=== PATIENT | female | born 1955 | race Caucasian/White ===

== ENCOUNTER → 2019-03-06 | Outpatient (CLI) | payer MEDICARE, SELFPAY | PROVIDERS: Family Provider Nurse Practitioner Family; Visit Provider Internal Medicine | DX: R13.19 Other dysphagia (principal); K22.8 Other specified diseases of esophagus | CPT/HCPCS: 74230; 92611 ==

== ENCOUNTER 2019-03-16 09:13 | Day surgery (SDC) | payer MEDICARE, SELFPAY ==
[2019-03-15 07:58] VITALS: BMI 29.6
--- NOTE | 2019-03-16 08:49 | PM.HPUD ---
H&P update H&P Update: DATE OF SURGERY/PROCEDURE: 03/16/19 DATE H&P PERFORMED: 01/18/19 PLANNED PROCEDURE: Operation Date: 03/16/19 10:00 Proposed Procedures p EGD(Not Applicable) - Ishan Lance MD Full H&P HPI: PRIMARY INDICATION/DIAGNOSIS FOR SURGICAL PROCEDURE: Esophageal dysphagia PLANNED PROCEDURE: EGD with botox HPI: Her swallogram shows esophageal spasm. ROS: ROS: Dysphagia. Dysphonia. Perinent History: Medical/Surgical History: Medical History (Updated 03/15/19 @ 13:29 by Ishan Lance MD) Esophageal dysphagia (Acute) Family History: Family History (Updated 03/01/19 @ 14:18 by Cristina Sorensen RN) Brother Diabetes Hypertension Heart disease Mother Diabetes Hypertension Heart disease Father Stroke Social History: Social History Smoking and tobacco status: never smoked Second hand smoke exposure: Yes Alcohol intake: never Desire information about alcohol rehabilitation?: No Counseling given: No Pertinent Exam Findings: PHYSICAL EXAM: alert, oriented x 3, clear to auscultation bilaterally and regular rate & rhythm
[2019-03-16 09:51] VITALS: BP 132/69; PULSE 50; RESP 18; O2SAT 98
[2019-03-16] MEDS: sodium chloride 0.9% 1,000 ML 30 ML (09:59)
--- NOTE | 2019-03-16 10:10 | ANES.PREANES ---
Pre-Anesthetic Assessment Pre-Anesthetic Assessment: Height/Weight: Height 1.57 m Weight 73.482 kg Pulse Resp BP Pulse Ox 50 L 18 132/69 98 03/16/19 09:51 03/16/19 09:51 03/16/19 09:51 03/16/19 09:51 Proposed Procedure: Operation Date: 03/16/19 10:00 Proposed Procedures p EGD(Not Applicable) - Ishan Lance MD Was Beta Balta taken within 24 hours: Yes Last intake: Intake Last Liquid Date 03/15/19 Last Liquid Time 21:00 Last Solid Date 03/15/19 Last Solid Time 17:00 Last Intake: 07:44 Social: Social History: No alcohol and No tobacco Comment: 2nd hand Exam: Pre-Anes Outpt Exam: alert, oriented x 3, clear to auscultation bilaterally and regular rate & rhythm Airway: Submandibular: WNL Cervical ROM: WNL MP: 1 Additional comments: no teeth History/ROS: No significant complaints Pulmonary: Pulmonary: SOB CV/HEM: CV/HEM: Anemia, CAD, HTN and PA (february 2014) Comments: sinus bandar, leaky valves : : Chronic renal Insufficiency Comments: stage 3 kidney failure Hepatic: Hepatic: None reported GI: GI: GERD (controlled) Metabolic: Metabolic: Hyperlipidemia Musc/skel: Musc/skel: Lower Back Pain Neuropsych: Neuropsych: None reported Anesthetic Plan: ASA status: III Anesthesia: MAC Risk of > 500 ml blood loss (7ml/kg in children): No PFSH Anesthesia PFSH: Medical History (Updated 03/15/19 @ 13:29 by Ishan Lance MD) Esophageal dysphagia (Acute) Social History Smoking and tobacco status: never smoked Second hand smoke exposure: Yes Alcohol intake: never Desire information about alcohol rehabilitation?: No Counseling given: No Data Anesthesia Cardiac Studies: No Data to Display
[2019-03-16 10:45] VITALS: BP 123/72; PULSE 63; RESP 16; TEMP 36.6; O2SAT 98
--- NOTE | 2019-03-16 10:50 | ANE.PACU ---
 Inpatient post-anesthesia follow up: Airway intact: Yes Vital signs: Temperature 97.8 F Pulse Rate [Apical ] 63 Pulse Rate [Left A pical] 63 Respiratory Rate 16 Blood Pressure [Le ft Arm] 123/72 Pulse Oximetry 98 Oxygen Delivery Me thod Room Air Oxygen Flow Rate Fraction of Inspir ed Oxygen Hydration adequate: Yes Nausea and vomiting: No Pain level: 1 Mental status: Baseline
[2019-03-16 10:56] VITALS: BP 119/61; PULSE 65; RESP 18; O2SAT 94
== END 2019-03-16 11:15 | disposition home or self-care (01) ==
PROVIDERS: Family Provider Nurse Practitioner Family; PCP Nurse Practitioner Family; Visit Provider Internal Medicine
PROC: 3E0G8TZ Introduction of Destructive Agent into Upper GI, Via Natural or Artificial Opening Endoscopic (ICD-10-PCS; CPT 43236; 2019-03-16 10:00)
DX: R13.10 Dysphagia, unspecified (principal); K22.4 Dyskinesia of esophagus; R49.0 Dysphonia; I25.10 Atherosclerotic heart disease of native coronary artery without angina pectoris; I10 Essential (primary) hypertension; I25.2 Old myocardial infarction; K21.9 Gastro-esophageal reflux disease without esophagitis; E78.5 Hyperlipidemia, unspecified; Z82.49 Family history of ischemic heart disease and other diseases of the circulatory system; Z83.3 Family history of diabetes mellitus
CPT/HCPCS: 43236; J0585; J2704; J7030

== ENCOUNTER → 2019-03-22 09:09 | Outpatient (BNVA) | payer MEDICARE, SELFPAY | PROVIDERS: Family Provider Nurse Practitioner Family; PCP Nurse Practitioner Family; Visit Provider Obstetrics & Gynecology | DX: R82.90 Unspecified abnormal findings in urine (principal) | CPT/HCPCS: 81003; 87086 ==

== ENCOUNTER 2019-05-09 07:04 | Outpatient (CLI) | payer MEDICARE, SELFPAY ==
[2019-05-09 07:17] VITALS: BMI 31.4
--- NOTE | 2019-05-09 07:32 | ECG_ITS ---
NAME OF STUDY: LEXISCAN SESTAMIBI STRESS TEST INDICATION: Athrosclerotic Heart Disease PROCEDURE: At the baseline, the EKG revealed normal sinus rhythm with a poor R wave progression. Nonspecific T wave changes. Minimal left axis deviation. The baseline blood pressure was 111/76 mm Hg with a heart rate of 59 beats/min. Lexiscan was infused over a period of 20 seconds. A total of 0.4 milligrams of Lexiscan was infused. The stress phase was continued for a total of 5 minutes. Heart rate at the end of the stress phase was 94 with a blood pressure 135/83. The EKG at the peak infusion revealed no significant changes. Sestamibi was injected 20 seconds after the Lexiscan infusion. Blood pressure at the end of the recovery phase was 130/83 with a heart rate of 84 per minute. CONCLUSION: 1. No significant EKG changes with the LexiScan infusion 2. No LexiScan induced chest pain or cardiac arrhythmia 3. Normal blood pressure and heart rate response 4. Sestamibi/sestamibi perfusion scan pending; see separate report. Electronically Signed On 05-11-2019 15:56:56 ZIGZAG TUNNEL ELASTIC OPERATOR by Hemalatha King M.D. [email or web address]
--- NOTE | 2019-05-09 07:33 | NMCV_ITS ---
NM efrain perf SPECT r/s* [id number] Vivian Shaw Age: 64 Gender: F : 1955 Exam Date: 05/09/2019 08:24 Ordering Phys: Hemalatha King MD ([email or web address]) Technologist: CHARBEL Kessler Exam Location: [facility] Indications: ATHEROSCLEROTIC HEART DISEASE STRESS TEST Please see separate stress test report in [facility] for full findings IMAGE PROTOCOL Rest/Stress 1 Lexiscan Day Radiopharmaceutical Dose (mCi) Administration Site Administered by Rest: Tc-99m 10.9 IV CHARBEL Kessler Sestamibi Stress:Tc-99m 31.9 IV CHARBEL Dove Sestamibi Rest: 09-May-2019 60 Discovery 630 Stress: 09-May-2019 30 Discovery 630 0.4mg Lexiscan. Supine position only as patient was unable to lay prone. SPECT RESULTS Technical Quality: Good Raw Data Analysis: Normal Image Corrections: No attenuation or motion correction applied Summed Stress Score: 23 Summed Rest Score: 15 Summed Difference Score: 8 PERFUSION FINDINGS Moderate area of severely decreases uptake in the mid anterior, anterolateral , inferolateral and apical segments including the LV apex . Some reversibility was noted in the apical segments and the mid anterior, anterolateral and inferolateral segments FUNCTIONAL RESULTS (calculated via Gated SPECT) Stress Image LV EF (%): 52 Stress EDV (mL):111 TID: 1.26 Stress ESV (mL):53 FUNCTIONAL FINDINGS: LV wall motion analysis revealed a severe diffuse hypokinesia of the LV apex IMPRESSIONS 1. Myocardial perfusion imaging revealing a areas of severely decreased uptake in the anterior, anterolateral, inferolateral and apical segments with some reversibility, suggestive of myocardial scarring with ischemia in the distribution of the all the 3 coronary arteries. 2. Normal LV ejection fraction 52%. 3. LV wall motion analysis revealing severe diffuse hypokinesia of the LV apex. 4. Mildly dilated LV cavity with an end-systolic volume of 53 mL. 5. Elevated transient ischemic dilatation ratio(1.26) also may suggest endocardial ischemia. Clinical correlation recommended. No similar previous studies are available for comparison Dr Hemalatha King MD FAC (Electronically Signed) Final Date: 09 May 2019 20:48 S
--- NOTE | 2019-05-09 09:09 | SUR.PREOP ---
Patient reports no pain or discomfort prior to the start of the procedure.
[2019-05-09] MEDS: regadenoson 0.4 Mg/5 ml Syringe IVP (09:10)
[2019-05-09 09:23] VITALS: BP 127/82; PULSE 93
== END 2019-05-09 07:05 | disposition home or self-care (01) ==
LOC: CDL 07:07
PROVIDERS: Family Provider Nurse Practitioner Family; PCP Nurse Practitioner Family; Visit Provider Internal Medicine Cardiovascular Disease
DX: I25.10 Atherosclerotic heart disease of native coronary artery without angina pectoris (principal)
CPT/HCPCS: 78452; 93017; A9500; J2785

== ENCOUNTER 2019-05-25 09:08 | Observation (INO) | payer MEDICARE, SELFPAY ==
[2019-05-23 10:58] LABS: Basophils % 0.7 %; Eosinophils # 0.2 10^3/uL (0.0-0.8); Eosinophils % 3.9 %; Hematocrit 34.8 % (37.0-47.0); Hemoglobin 11.2 g/dL (11.5-15.3); Lymphocytes % 36.5 %; Mean Corpuscular HGB Conc 32.2 g/dL (30.0-36.0); Mean Corpuscular Hemoglobin 32.3 pg (28.0-34.0); Mean Corpuscular Volume 100.3 fL (81-99); Mean Platelet Volume 11.7 fL (7.4-10.4); Monocytes # 0.6 10^3/uL (0.2-0.9); Monocytes % 11.1 %; Neutrophils # 2.6 10^3/uL (1.8-7.7); Neutrophils % 47.6 %; Nucleated Red Blood Cells % 0 %; Platelet Count 146 10^3/cmm (130-400); Red Blood Count 3.47 10^6/uL (4.1-5.3); White Blood Count 5.4 10^3/uL (4.0-10.0)
[2019-05-23 11:11] LABS: INR 1.03 (0.8-1.2)
[2019-05-25] VITALS (24 sets, daily range): BP systolic 102–155; BP diastolic 58–95; PULSE 49–71; RESP 14–25; TEMP 36.7; O2SAT 96–100; BMI 31.9
--- NOTE | 2019-05-25 06:00 | XACV_ITS ---
Ht: 155 cm Wt: 77 kg BSA: 1.85 m2 Gender: Female : 1955 Any Known Allergies: Other Exam Priority: Routine Procedure(s): Procedure Description: Diagnostic procedure Procedure Description: Right Heart Catheterization Procedure Description: Left ventriculography Procedure Description: O2 saturation Procedure Description: Coronary Angiography Diagnostic Cath Status: Elective Diagnostic Findings pLAD: Moderate 65% stenosis, ZACKERY: 3 flow. dLAD: Severe 95% stenosis, ZACKERY: 3 flow. dLAD: Severe 100% stenosis, ZACKERY: 0 flow. Coronary angiography shows right dominance. The left main is a medium caliber vessel with no significant stenotic lesion. Mild coronary calcification was noted. The left anterior descending artery is a medium caliber vessel which was found to have mild diffuse disease proximally. Just before the first septal manager commodities, there is a 60 to 70% segmental narrowing. After the second diagonal branch, the artery appears to be subtotally occluded. Moderate to severe diffuse disease was noted in the distal artery. After the third diagonal branch, the artery is completely occluded. The circumflex artery is a medium sized artery with has mild diffuse disease proximally with mild diffuse coronary ectasia. No significant stenotic lesions were noted in the obtuse marginal vessel. The right coronary artery is a codominant, medium caliber vessel with mild diffuse disease. No significant stenotic lesions were noted. PCI Status: Elective Conclusions This is a 64-year-old white female with history of coronary artery disease, status post myocardial infarction 2013, he is presenting with shortness of breath and fatigue. She had a myocardial perfusion imaging which revealed fixed defect in the distribution of the left anterior descending artery. Because of her ongoing worsening of the symptoms, for further evaluation of her coronary status as well as the hemodynamics, a cardiac catheterization was recommended. Patient underwent right and left heart catheterization with right and left coronary angiogram, LV angiogram and possible PCI was recommended. The findings are as follows. Moderate to severe diffuse disease in the proximal to mid LAD. Total occlusion of the distal LAD. Mild diffuse disease in the other vessels. Diminished LV ejection fraction of 40%. LVEDP of 20 mmHg. The right heart catheterization revealed RA pressure of 8, RV pressure of 31 and PA pressure of 32/13 with a mean of 19 mmHg. The cardiac output was 4.06 with an index of 2.3 by Woody's. Recommendations We may consider cardiac MRI for viability. Consider possible intervention, based on the viability findings. Diagnostic RX Recommendation: medical therapy and/or counseling LV EDP: 20 mmHg Ventriculography Ejection Fraction: 40.0 % Left Ventriculography Findings: The LV angiogram was performed in the GREGORY projection. The LV cavity appears to be upper limit of normal size. There is moderate diffuse hypokinesia anteroapical region with a severe hypokinesia of the apex. There is no filling defect. No significant mitral valve prolapse or mitral regurgitation. The LVEDP was 20 which went up to 24 following the LV angiogram. Pressures Phase:Rest AO : 115 mmHg / 62 mmHg ( 84 mmHg ) @ 2:54:00 AM 118 mmHg / 63 mmHg ( 87 mmHg ) @ 3:01:00 AM 118 mmHg / 57 mmHg ( 84 mmHg ) @ 3:09:00 AM 119 mmHg / 59 mmHg ( 83 mmHg ) @ 3:09:00 AM LV : 136 mmHg / -9 mmHg / @ 3:07:00 AM 130 mmHg / -2 mmHg / @ 3:08:00 AM 129 mmHg / -3 mmHg / @ 3:09:00 AM RV : 31 mmHg / -2 mmHg / @ 2:50:00 AM 34 mmHg / 0 mmHg / @ 2:50:00 AM PA : 29 mmHg / 13 mmHg ( 19 mmHg ) @ 2:48:00 AM 32 mmHg / 13 mmHg ( 18 mmHg ) @ 2:49:00 AM RA : a wave = v wave = mean = 8 mmHg @ 2:51:00 AM O2 Content Phase:Rest PA : O2 Content O2: 72.0 % @ 2:54:00 AM Saturations Phase:Rest AO : 97 % @ 3:09:00 AM RA : 72 % @ 3:09:00 AM RV : 72 % @ 3:01:00 AM PA : 72 % @ 2:54:00 AM Cardiac Output Phase:Rest Woody : 4 l/min @ 2:54:00 AM Woody Cardiac Index: 2 L/min/m2 @ 2:54:00 AM Valves Phase:DefaultPhase AV : 13.0 mmHg @ 8:23:08 AM AV Mean Gradient: 12.0 mmHg @ 8:23:08 AM 12.0 mmHg @ 8:23:08 AM Clinical Evaluation EBL: 5mL-10mL Procedural Details Procedure Consent Obtained. Pre-Procedure Time Out. Identified patient by full name and date of as verbalized by the patient/guarantor. Does the consent match the physician's order: Yes. Accurate & Complete Informed Consent: Yes. Inpatient/Outpatient History & Physical on Chart: Yes. If H&P is completed, is and addenduem needed: No; If yes, is the addendum complete: N/A. Visualize and Verify Site with Patient/Guarantor: N/A. Relevant Radiology Images available: Yes. Pre-op teaching completed and patient verbalized understanding. The risks, benefits, and alternatives of sedation and/or procedure were discussed by physician. The patient agrees to continue. Procedure started. Correct patient, site and procedure confirmed by cath team. Current diagnosis: Chest Pain. PERRLA. Strong, equal hand senior benefits analyst bilaterally. Lungs clear x 5 lobes. IV Site on Arrival: 20 gauge in the left anticubital. IV Fluids: 0.9% NaCl at KVO. 0 mL infused prior to bundle tier and labeler. Pre Procedural Pulses: bilateral dorsalis pedis was 3+. Pre Procedural Pulses: bilateral posterior tibial was 3+. Pre Procedural Pulses: bilateral radial was 3+. bilateral groins was prepped with chloroprep then draped in the usual sterile fashion. Physician notified. Baseline sample Acquired. HR: 56 BPM. Equipment: 6F - Femoral. ACIST Manifold Kit Model BT 2000. Cardiac Cath Pack. Heparinized Saline (2 units/mL), 1000 mL bag. Kit, Micropuncture. Physician arrived. Physician scrubbed in. Immediate Pre-Procedure Time Out. Correct Patient: Yes; Correct Procedure: Yes; Correct Site: Yes; Correct Patient Position: Yes; Correct Supplies: Yes; Dried Flammable Prep: Yes; Blood Products Available: No;. Lidocaine 1% infiltrated to the right groin. Venous access obtained with a micropuncture set. Arterial access obtained with micropuncture set. Wayne-Nacho MON catheter inserted. Glidewire inserted. Glidewire removed. Wayne-Nacho out. A 6 sri lankan JR4 catheter in over wire. Multiple views taken of right coronary artery. Catheter out. A 6 sri lankan JL4 catheter in over wire. Multiple views taken of left coronary artery. Family updated. Catheter out. A 5 sri lankan Angled Pig catheter in over wire. EDP Sample taken: LV 136/-10,20; HR: 64 BPM; SpO2: 96%. LV gram performed in GREGORY @ 10 mL/second for a total of 30 mL. EDP Sample taken: LV 130/-3,24; HR: 61 BPM; SpO2: 97%. Pullback taken: LV 129/-4,20; AO 118/57(84); Mean: 12mmHg, Peak to Peak: 13mmHg, SEP: 23sec/min; HR: 62 BPM; SpO2: 95%. Catheter out. Dr. Micheal Valiente arrived. Dr. King scrubbed out and physicians reviewed films. Sheath(s) sutured into position with 2-0 silk and sterile 4x4's and Op-site applied over the site. No oozing or signs and symptoms of hematoma noted. Arterial sheath flushed and connected to tranducer and pressure bag with heparinized saline. A Suture was successful obtaining hemostatsis at the Right Femoral vein insertion site. A Suture was successful obtaining hemostatsis at the Right Femoral artery insertion site. Post Procedure: Pulses reassessed and unchanged. PERRLA. Strong, equal hand senior benefits analyst bilaterally. No VTE prophylaxis required. Medication's Wasted: Heparin = 2500 units. Medication's Wasted: Lidocaine 1% = 10 mL. Medication's Wasted: Other = Fentanyl 50mcg. Total IV fluids: 290 mL. Contrast type used: Omnipaque 300 mgI/mL, 500 mL bottle. Post-op diagnosis: Chest Pain. Complications: None. Estimated blood loss: 5mL-10mL. [facility] Clinical Fraility Score: 4: Vulnerable. Boilermaker Indications: Cardiomyopathy. Chest Pain Symptom Assessment: Non-anginal Chest Pain. Cardiovascular Instability: No. Procedure completed. Patient transferred by bed to 1st floor. Vital chart was stopped. Site: Right Femoral vein Sheath Size: 6 Fr Hemostasis Method: Suture Hemostasis Success: Successful Site: Right Femoral artery Sheath Size: 5 Fr Hemostasis Method: Suture Hemostasis Success: Successful Procedure Medications Start: 7:30 AM Stop: 7:30 AM Medication: Versed 1 mg and Fentanyl 25 mcg Amount: 1 Route: I.V. Start: 7:39 AM Stop: 7:39 AM Medication: Versed Amount: 1 mg Route: I.V. Start: 7:39 AM Stop: 7:39 AM Medication: Heparin Amount: 1500 units Route: I.V. Start: 7:54 AM Stop: 7:54 AM Medication: 0.9% Saline Amount: 250 ml Route: I.V. bolus Start: 7:57 AM Stop: 7:57 AM Medication: Versed 1 mg and Fentanyl 25 mcg Amount: 1 Route: I.V. Start: 8:07 AM Stop: 8:07 AM Medication: Versed Amount: 1 mg Route: I.V. I, the attending physician, have reviewed and verified all procedure medications. Yes, all medications given per verbal order History/Risk Factors Hypertension: Yes Dyslipidemia: Yes Peripheral Arterial Disease (PAD): No Myocardial Infarction (ND): Yes Obesity: No Renal Disease: Yes Tobacco Use: Never Prior Interventions PCI: No CABG: No Valve Surgery: No Report Signatures Finalized by:Dr Hemalatha King MD [facility] on 05/25/2019 9:50:33 AM
[2019-05-25 07:01] LABS: Anion Gap 16.4 (5-19); Blood Urea Nitrogen 16 mg/dL (8-23); Calcium 9.4 mg/dL (8.5-10.5); Carbon Dioxide 26 mmol/L (22-29); Chloride 106 mmol/L (98-107); Glomerular Filtration Rate 44.9 mL/min (90-130); Glucose 97 mg/dL (65-115); Osmolality Calculated 296 mOsm/kg (285-295); Potassium 3.4 mmol/L (3.5-5.1); Sodium 145 mmol/L (136-145)
[2019-05-25] MEDS: aspirin 81 mg EC Tablet PO (11:27)
[2019-05-25] MEDS: tamsulosin 0.4 mg Capsule PO (11:27)
[2019-05-25] MEDS: cholecalciferol (vitamin D3) 1,000 unit Tablet 1000 UNIT PO (11:27)
[2019-05-25] MEDS: oxybutynin 5 mg Tablet 10 MG PO (11:27)
[2019-05-25] MEDS: ascorbic acid 500 mg Tablet 1000 MG PO (11:27)
[2019-05-25] MEDS: carvedilol 3.125 mg Tablet PO ×2 (11:28→17:47)
[2019-05-25] MEDS: atorvastatin 40 mg Tablet PO (11:28)
[2019-05-25] MEDS: pantoprazole DR 40 mg Tablet PO (11:28)
[2019-05-25] MEDS: ferrous sulfate EC 325 mg Tablet PO ×2 (11:28→17:47)
[2019-05-25] MEDS: sodium chloride 0.9% 1,000 ML 75 ML IV (15:31)
--- NOTE | 2019-05-25 17:55 | PC.NURSE ---
pt states she took dose of Acetylcysteine prior to admission this morning.2nd dose for daay given now
[2019-05-25] MEDS: trazodone 100 mg Tablet PO (21:13)
[2019-05-25] MEDS: lisinopril 2.5 mg Tablet PO (21:13)
[2019-05-26] VITALS: BP 126/78; PULSE 75; RESP 21; TEMP 36.8; O2SAT 97
[2019-05-26 02:04] VITALS: PULSE 63; O2SAT 97
[2019-05-26 03:51] LABS: Anion Gap 9.2 (5-19); Blood Urea Nitrogen 17 mg/dL (8-23); Calcium 8.7 mg/dL (8.5-10.5); Carbon Dioxide 28 mmol/L (22-29); Chloride 109 mmol/L (98-107); Glomerular Filtration Rate 49.7 mL/min (90-130); Glucose 108 mg/dL (65-115); Osmolality Calculated 291 mOsm/kg (285-295); Potassium 4.2 mmol/L (3.5-5.1); Sodium 142 mmol/L (136-145)
[2019-05-26 04:14] VITALS: BP 125/71; PULSE 72; RESP 22; TEMP 36.7
[2019-05-26] MEDS: sodium chloride 0.9% 1,000 ML 75 ML IV (04:43)
[2019-05-26] MEDS: carvedilol 3.125 mg Tablet PO (08:57)
[2019-05-26] MEDS: pantoprazole DR 40 mg Tablet PO (08:57)
[2019-05-26] MEDS: ferrous sulfate EC 325 mg Tablet PO (08:57)
[2019-05-26] MEDS: tamsulosin 0.4 mg Capsule PO (08:58)
[2019-05-26] MEDS: ascorbic acid 500 mg Tablet 1000 MG PO (08:58)
[2019-05-26] MEDS: aspirin 81 mg EC Tablet PO (08:58)
[2019-05-26] MEDS: cholecalciferol (vitamin D3) 1,000 unit Tablet 1000 UNIT PO (08:58)
[2019-05-26] MEDS: oxybutynin 5 mg Tablet 10 MG PO (08:58)
[2019-05-26] MEDS: atorvastatin 40 mg Tablet PO (08:58)
[2019-05-26 09:04] VITALS: BP 155/77; PULSE 64; RESP 21; TEMP 36.4; O2SAT 99
--- NOTE | 2019-05-26 09:19 | P.PN_ITS ---
Subjective Subjective: Interval history: Patient is feeling okay. She has no chest pain or shortness of breath.Her vital signs remained stable.The blood pressure medications were adjusted. She was carefully hydrated. Her BUN and creatinine level is coming down. Medications: Reviewed: Yes Medication Review Details: Current Medications Acetaminophen (Tylenol) 650 mg PO Q6H PRN PRN Reason: MILD PAIN Al Hydrox/Mg Hydrox/Simethicone (Maalox) 30 ml PO Q15M PRN PRN Reason: INDIGESTION Alprazolam (Xanax) 0.25 mg PO TID PRN PRN Reason: ANXIETY Ascorbic Acid (Vitamin C) 1,000 mg PO DAILY [facility] Last Admin: 05/26/19 08:58 Dose: 1,000 mg Documented by: Aspirin (Aspirin Ec) 81 mg PO DAILY [facility] Last Admin: 05/26/19 08:58 Dose: 81 mg Documented by: Atorvastatin Calcium (Lipitor) 40 mg PO DAILY [facility] Last Admin: 05/26/19 08:58 Dose: 40 mg Documented by: Atropine Sulfate (Atropine) 0.5 mg IVP PRN PRN PRN Reason: Symptomatic bradycardia Carvedilol (Coreg) 3.125 mg PO BID [facility] Last Admin: 05/26/19 08:57 Dose: 3.125 mg Documented by: Fentanyl (Sublimaze) 50 mcg IVP PRN PRN PRN Reason: Prior to sheath removal Ferrous Sulfate (Ferrous Sulfate) 325 mg PO BID [facility] Last Admin: 05/26/19 08:57 Dose: 325 mg Documented by: Furosemide (Lasix) 20 mg PO DAILY PRN PRN Reason: Edema Sodium Chloride (Sodium Chloride 0.9%) 1,000 mls @ 75 mls/hr IV .[id number] [facility] Last Admin: 05/26/19 04:43 Dose: 75 mls/hr Documented by: Lisinopril (Prinivil) 2.5 mg PO BEDTIME [facility] Last Admin: 05/25/19 21:13 Dose: 2.5 mg Documented by: Magnesium Hydroxide (Milk Of Magnesia) 30 ml PO DAILY PRN PRN Reason: CONSTIPATION Morphine Sulfate (Morphine) 0 mg IVP ONCE PRN PRN Reason: Breakthrough Pain PACU PhaseII Stop: 05/26/19 12:01 Mupirocin (Bactroban) 1 applic TOPICAL TID [facility] Last Admin: 05/26/19 08:59 Dose: Not Given Documented by: Naloxone HCl (Narcan) 0.1 mg IVP Q2M PRN PRN Reason: RESPIRATORY RATE < 8/MIN Nitroglycerin (Nitrostat) 0.4 mg SUBLINGUAL Q5M PRN PRN Reason: Chest Pain Non-Formulary Medication (Acetylcysteine [Nac]) 600 mg PO BID [facility] Last Admin: 05/26/19 08:57 Dose: 600 mg Documented by: Non-Formulary Medication (Betamethasone, Augmented) 1 applic TOPICAL BID [facility] Last Admin: 05/26/19 08:58 Dose: Not Given Documented by: Non-Formulary Medication (Clobetasol) 1 applic TOPICAL DAILY [facility] Last Admin: 05/26/19 08:58 Dose: Not Given Documented by: Non-Formulary Medication(Estrogens Conjugated Cream 30 Gm) 1 each VAGINAL DIRECTED [facility] Non-Formulary Medication ( Cyanocobalamin) 500 each IM .WEEKLY [facility] Non-Formulary Medication (Fluticasone Propionate) 1 inh INHALATION DAILY PRN PRN Reason: Allergic Symptoms Non-Formulary Medication (Isosorbide Mononitrate) 10 mg PO DAILY [facility] Last Admin: 05/26/19 08:58 Dose: Not Given Documented by: Non-Formulary Medication (Methenamine Hippurate) 1 gm PO BID [facility] Last Admin: 05/26/19 08:58 Dose: Not Given Documented by: Non-Formulary Medication (Wckraabtwugv-Oxrzwxcf-Jqwsue) 1 tab PO DAILY [facility] Last Admin: 05/26/19 08:59 Dose: Not Given Documented by: Ondansetron HCl (Zofran) 4 mg IVP Q15M PRN PRN Reason: Nausea/Vomiting PACU PHASE II Oxybutynin Chloride (Ditropan) 10 mg PO DAILY [facility] Last Admin: 05/26/19 08:58 Dose: 10 mg Documented by: Pantoprazole Sodium (Protonix) 40 mg PO DAILY [facility] Last Admin: 05/26/19 08:57 Dose: 40 mg Documented by: Tamsulosin HCl (Flomax) 0.4 mg PO DAILY [facility] Last Admin: 05/26/19 08:58 Dose: 0.4 mg Documented by: Temazepam (Restoril) 15 mg PO BEDTIME PRN PRN Reason: INSOMNIA Trazodone HCl (Desyrel) 100 mg PO BEDTIME [facility] Last Admin: 05/25/19 21:13 Dose: 100 mg Documented by: Vitamin D (Vitamin D3) 1,000 unit PO DAILY YOLANDA Last Admin: 05/26/19 08:58 Dose: 1,000 unit Documented by: Vitals/I&O/Wt Last Vital Signs Temp 97.6 F 05/26/19 09:04 Pulse 64 05/26/19 09:04 Resp 21 H 05/26/19 09:04 BP 155/77 05/26/19 09:04 Pulse Ox 99 05/26/19 09:04 05/25/19 05/26/19 05/26/19 22:59 06:59 14:59 Intake Total 360 / 720 1110 / 1830 360 / 360 Balance 360 / 718 1110 / 1828 360 / 360 Weight last 48 hrs Weight 169 lb Physical Exam Narrative: EXAM NARRATIVE: GENERAL: The patient is alert and oriented times three. Not in any acute distress. HEENT: No significant pallor, icterus or lymphadenopathy.Oral cavity: There are no mucous membrane lesions. NECK: Trachea appears to be central. No masses noted. No JVD or thyromegaly appreciated. RESPIRATORY: Chest is symmetrical. No intercostals muscle retraction or any accessory muscle activation. There is no chest wall tenderness. Breath sounds are heard bilaterally. No rales or rhonchi heard. No evidence of any consolidation. BREASTS: Deferred. HEART: The heart sounds are normal. No S3 or S4. No significant murmurs. No pericardial rub ABDOMEN: No vessel pulsations or distention. No tenderness. No organomegaly appreciated. Bowel sounds are normally heard. : Deferred. LYMPHATIC: No lymphadenopathy noted in the neck or groin. EXTREMITIES: No edema or cyanosis. No clubbing. Peripheral pulses are palpated in fairly good volume and amplitude MUSCULOSKELETAL: No acute joint deformities or swelling SKIN: There are no significant scars or skin rash noted. NEUROPSYCHIATRIC: The patient is alert and oriented x3. Appears to be in a good mood. No tremors or rigidity noted. Data : 05/23/19 10:50 05/26/19 03:18 Other Labs: Abnormal lab results 05/26/19 Range/Units 03:18 Chloride 109 H (98-107) mmol/L Creatinine 1.1 H (0.5-0.9) mg/dL GFR Calculation 49.7 L (90-130) mL/min Attestations Medical Necessity Statement*: Patient is being discharged home today Procedures Procedure Narrative Patient underwent left and right heart catheterization with left and right coronary angiogram and LV angiogram. The findings are as follows. Moderate to severe diffuse disease in the proximal to mid LAD. Totalocclusion of the distal LAD. Mild diffuse disease in the other vessels. Diminished LV ejection fraction of 40%. LVEDP of 20 mmHg. The right heart catheterization revealed RA pressure of 8, RV pressure of 31 and PA pressure of 32/13 with a mean of 19 mmHg. The cardiac output was 4.06with an index of 2.3 by Woody's. The plan was to do a viability study to look for any significant viable myocardium in the distribution of the left artery descending artery. Based on that, the need for revascularization will be decided. In the meanwhile, it was decided to optimize the medical treatment. Coding Level of Care Code Acute Document Management Consultant for Wilmar Nash
[2019-05-26 10:01] VITALS: BP 155/77; PULSE 64; RESP 21; TEMP 36.4; O2SAT 99
[2019-05-26] MEDS: lisinopril 5 mg Tablet PO (10:25)
== END 2019-05-26 11:24 | disposition home or self-care (01) ==
LOC: CSU 09:09
PROVIDERS: Admitting Provider Internal Medicine Cardiovascular Disease; Family Provider Nurse Practitioner Family; PCP Nurse Practitioner Family; Visit Provider Internal Medicine Cardiovascular Disease
DX: I25.118 Atherosclerotic heart disease of native coronary artery with other forms of angina pectoris (principal); R94.39 Abnormal result of other cardiovascular function study; Z79.01 Long term (current) use of anticoagulants; R53.83 Other fatigue; E78.5 Hyperlipidemia, unspecified; Z79.82 Long term (current) use of aspirin; G47.33 Obstructive sleep apnea (adult) (pediatric); I12.9 Hypertensive chronic kidney disease with stage 1 through stage 4 chronic kidney disease, or unspecified chronic kidney disease; N18.3 Chronic kidney disease, stage 3 (moderate); Z82.49 Family history of ischemic heart disease and other diseases of the circulatory system; Z83.3 Family history of diabetes mellitus; Z82.3 Family history of stroke; I25.2 Old myocardial infarction
CPT/HCPCS: 12345; 36415; 80048; 85025; 85610; 86850; 86900; 93453; 96360; 96361; C1751; C1769; C1887; C1894; G0378; J1644; J2001; J2250; J3010; J7030; Q9967

== ENCOUNTER → 2019-05-31 15:42 | Outpatient (BNVA) | payer MEDICARE, SELFPAY | PROVIDERS: Family Provider Nurse Practitioner Family; PCP Nurse Practitioner Family; Visit Provider Internal Medicine Cardiovascular Disease | DX: R06.02 Shortness of breath (principal); G47.33 Obstructive sleep apnea (adult) (pediatric); I25.118 Atherosclerotic heart disease of native coronary artery with other forms of angina pectoris; E78.5 Hyperlipidemia, unspecified; I10 Essential (primary) hypertension; R53.83 Other fatigue | CPT/HCPCS: 80048 ==

== ENCOUNTER → 2019-07-24 11:35 | Outpatient (BNVA) | payer MEDICARE, SELFPAY | PROVIDERS: Family Provider Nurse Practitioner Family; PCP Nurse Practitioner Family; Visit Provider Internal Medicine Cardiovascular Disease | DX: R94.39 Abnormal result of other cardiovascular function study (principal); R06.02 Shortness of breath; Z79.01 Long term (current) use of anticoagulants; I25.118 Atherosclerotic heart disease of native coronary artery with other forms of angina pectoris; R40.0 Somnolence; E78.5 Hyperlipidemia, unspecified; I10 Essential (primary) hypertension | CPT/HCPCS: 80061; 80076 ==

== ENCOUNTER → 2019-08-14 10:50 | Outpatient (BNVA) | payer MEDICARE, SELFPAY | PROVIDERS: Family Provider Nurse Practitioner Family; PCP Nurse Practitioner Family; Visit Provider Family Medicine | DX: I10 Essential (primary) hypertension (principal); M54.9 Dorsalgia, unspecified; E78.5 Hyperlipidemia, unspecified; E55.9 Vitamin D deficiency, unspecified; J44.9 Chronic obstructive pulmonary disease, unspecified; J22 Unspecified acute lower respiratory infection; Z79.899 Other long term (current) drug therapy; E53.8 Deficiency of other specified B group vitamins | CPT/HCPCS: 71110; 80053; 80061; 81001; 81003; 82306; 83036; 84443; 85025 ==

== ENCOUNTER → 2019-08-16 14:08 | Outpatient (BNVA) | payer MEDICARE, SELFPAY | PROVIDERS: Family Provider Nurse Practitioner Family; PCP Nurse Practitioner Family; Visit Provider Nurse Practitioner Family | DX: R05 Cough (principal); J44.9 Chronic obstructive pulmonary disease, unspecified; E55.9 Vitamin D deficiency, unspecified | CPT/HCPCS: 71046; 82607 ==

== ENCOUNTER → 2019-08-20 09:58 | Outpatient (BNVA) | payer MEDICARE, SELFPAY | PROVIDERS: Family Provider Nurse Practitioner Family; PCP Nurse Practitioner Family; Visit Provider Nurse Practitioner Family | DX: E53.8 Deficiency of other specified B group vitamins (principal) | CPT/HCPCS: 82607 ==

== ENCOUNTER 2019-08-28 11:37 | Outpatient (CLI) | payer MEDICARE, SELFPAY ==
--- NOTE | 2019-08-28 11:48 | XRR_ITS ---
PROCEDURE INFORMATION: Exam: XR Thoracic Spine, 3 Views Exam date and time: 08/28/2019 11:49 AM Age: 64 years old Clinical indication: Condition or disease; Other: Compression fracture; Prior surgery TECHNIQUE: Imaging protocol: XR of the thoracic spine, 3 views. COMPARISON: No relevant prior studies available. FINDINGS: Vertebrae: There is mild osteoarthritis No acute fracture. Normal alignment. Soft tissues: Unremarkable. XR/XR thoracic spine 3V* [id number] IMPRESSION: No acute findings.
--- NOTE | 2019-08-28 11:48 | XRR_ITS ---
PROCEDURE INFORMATION: Exam: XR Lumbosacral Spine, 2 or 3 Views Exam date and time: 08/28/2019 11:49 AM Age: 64 years old Clinical indication: Condition or disease; Other: Compression fracture; Prior surgery TECHNIQUE: Imaging protocol: XR of the lumbosacral spine, 2 or 3 views. COMPARISON: No relevant prior studies available. FINDINGS: Vertebrae: Normal. No acute fracture. There is mild retrolisthesis L3-L4, and L2-L3. Narrowing of the intervertebral disc space is seen at multiple levels corresponding to osteoarthritis. There is mild levoscoliosis Soft tissues: Unremarkable. XR/XR lumbar spine 2-3V* [id number] IMPRESSION: No acute findings. Mild osteoarthritis Mild levoscoliosis
--- NOTE | 2019-08-28 11:48 | XRR_ITS ---
PROCEDURE INFORMATION: Exam: XR Chest, 2 Views Exam date and time: 08/28/2019 12:24 PM Age: 64 years old Clinical indication: Cough; Additional info: Chronic cough TECHNIQUE: Imaging protocol: XR of the chest Views: 2 views. COMPARISON: CR XR chest 2V* [id number] 08/14/2019 11:01 AM FINDINGS: Lungs: Unremarkable. No consolidation. Pleural space: Unremarkable. No pleural effusion. No pneumothorax. Heart/Mediastinum: Unremarkable. No cardiomegaly. Bones/joints: Unremarkable. XR/XR chest 2V* [id number] IMPRESSION: No acute findings.
== END 2019-08-28 11:38 | disposition home or self-care (01) ==
LOC: RAD 11:42
PROVIDERS: PCP Nurse Practitioner Family; Visit Provider Nurse Practitioner Family
DX: R05 Cough (principal); M48.50XA Collapsed vertebra, not elsewhere classified, site unspecified, initial encounter for fracture; M47.816 Spondylosis without myelopathy or radiculopathy, lumbar region; M41.9 Scoliosis, unspecified
CPT/HCPCS: 71046; 72072; 72100; 81001

== ENCOUNTER → 2019-09-06 12:02 | Outpatient (BNVA) | payer MEDICARE, SELFPAY | PROVIDERS: PCP Nurse Practitioner Family | DX: Z11.59 Encounter for screening for other viral diseases (principal) | CPT/HCPCS: 87635 ==

== ENCOUNTER 2019-09-26 20:00 | Outpatient (CLI) | payer MEDICARE, SELFPAY | END 2019-09-26 20:01 | disposition home or self-care (01) | LOC: SLEEP 09-27 09:27 | PROVIDERS: PCP Nurse Practitioner Family; Visit Provider Internal Medicine Cardiovascular Disease | DX: G47.10 Hypersomnia, unspecified (principal); G47.33 Obstructive sleep apnea (adult) (pediatric) | CPT/HCPCS: 95810 ==

== ENCOUNTER 2019-10-01 10:16 | Outpatient (CLI) | payer MEDICARE, SELFPAY ==
--- NOTE | 2019-10-01 10:30 | MM_ITS ---
WS: [id number] DIAGNOSTIC RIGHT DIGITAL MAMMOGRAM WITH CAD HISTORY: abnormal mammogram COMPARISON: 02/05/2019 and 12/05/2018 Technique: CC, MLO and ML views. Magnification views RIGHT CC and MLO. Breast composition: There are scattered areas of fibroglandular density. Calcifications in the upper outer quadrant of the RIGHT breast are not significantly changed. This is a very ill-defined cluster of calcifications and poorly visualized. There are adjacent vascular calcifications. No soft tissue mass. MM/[place] [id number] IMPRESSION: BI-RADS: 3-Probably Benign FOLLOW UP: 6 Month Follow-up Patient to return in 6 months for annual mammogram. Additional magnification vi ews of the RIGHT breast calcifications should be performed at that time.
== END 2019-10-01 10:17 | disposition home or self-care (01) ==
LOC: RADSHAW 10:21
PROVIDERS: PCP Nurse Practitioner Family; Visit Provider Nurse Practitioner Family
DX: R92.8 Other abnormal and inconclusive findings on diagnostic imaging of breast (principal); R92.1 Mammographic calcification found on diagnostic imaging of breast
CPT/HCPCS: 77065

== ENCOUNTER 2019-11-09 20:00 | Outpatient (CLI) | payer MEDICARE, SELFPAY | END 2019-11-09 20:01 | disposition home or self-care (01) | LOC: SLEEP 11-13 08:37 | PROVIDERS: PCP Nurse Practitioner Family; Visit Provider Internal Medicine Cardiovascular Disease | DX: G47.33 Obstructive sleep apnea (adult) (pediatric) (principal) | CPT/HCPCS: 95811 ==

== ENCOUNTER → 2019-11-29 12:21 | Outpatient (BNVA) | payer MEDICARE, SELFPAY | PROVIDERS: PCP Nurse Practitioner Family; Visit Provider Internal Medicine Cardiovascular Disease | DX: E78.5 Hyperlipidemia, unspecified (principal) | CPT/HCPCS: 80061; 80076 ==

== ENCOUNTER → 2020-01-02 12:15 | Outpatient (BNVA) | payer MEDICARE, SELFPAY | PROVIDERS: PCP Nurse Practitioner Family; Visit Provider Nurse Practitioner Family | DX: N39.0 Urinary tract infection, site not specified (principal) | CPT/HCPCS: 80053; 81003 ==

== ENCOUNTER → 2020-02-04 09:07 | Outpatient (BNVA) | payer MEDICARE, SELFPAY | PROVIDERS: PCP Nurse Practitioner Family; Visit Provider Nurse Practitioner Family | DX: E55.9 Vitamin D deficiency, unspecified (principal); E78.5 Hyperlipidemia, unspecified; D64.9 Anemia, unspecified; N39.0 Urinary tract infection, site not specified; M54.9 Dorsalgia, unspecified; I10 Essential (primary) hypertension; Z79.899 Other long term (current) drug therapy | CPT/HCPCS: 80053; 80061; 81003; 82306; 82607; 82746; 83036; 83550; 84443; 85025; 87086; 87635 ==

== ENCOUNTER → 2020-03-20 10:16 | Outpatient (BNVA) | payer MEDICARE, SELFPAY | PROVIDERS: PCP Nurse Practitioner Family; Visit Provider Nurse Practitioner Family | DX: H66.90 Otitis media, unspecified, unspecified ear (principal); D64.9 Anemia, unspecified; E55.9 Vitamin D deficiency, unspecified | CPT/HCPCS: 82306; 83540; 83921; 85025 ==

== ENCOUNTER 2020-08-12 15:02 | Outpatient (CLI) | payer MEDICARE, SELFPAY ==
--- NOTE | 2020-08-12 15:06 | MM_ITS ---
WS: [id number] BILATERAL SCREENING DIGITAL MAMMOGRAM WITH CAD HISTORY: SCREENING COMPARISON: 10/01/2019, 12/05/2018 Bilateral CC and MLO views submitted. Computer aided detection analyzed. Breast composition: The breasts are heterogeneously dense, which may obscure small masses. No suspici ous masses, microcalcifications or architectural distortion. Benign vascular calcifications. MM/[place] [id number] IMPRESSION: BI-RADS: 2-Benign FOLLOW UP: 1 Year Follow-up
== END 2020-08-12 15:03 | disposition home or self-care (01) ==
LOC: RADSHAW 15:05
PROVIDERS: PCP Nurse Practitioner Family; Visit Provider Nurse Practitioner Family
DX: Z12.31 Encounter for screening mammogram for malignant neoplasm of breast (principal)
CPT/HCPCS: 77067

== ENCOUNTER → 2020-08-20 12:19 | Outpatient (BNVA) | payer MEDICARE, SELFPAY | PROVIDERS: PCP Nurse Practitioner Family; Visit Provider Nurse Practitioner Family | DX: D64.9 Anemia, unspecified (principal); I10 Essential (primary) hypertension; E78.2 Mixed hyperlipidemia; E55.9 Vitamin D deficiency, unspecified; M51.36 Other intervertebral disc degeneration, lumbar region; J44.9 Chronic obstructive pulmonary disease, unspecified; I25.118 Atherosclerotic heart disease of native coronary artery with other forms of angina pectoris; Z79.899 Other long term (current) drug therapy | CPT/HCPCS: 80053; 80061; 82306; 82607; 82746; 83036; 83550; 83735; 84100; 85025 ==

== ENCOUNTER → 2020-08-27 14:01 | Outpatient (BNVA) | payer MEDICARE, SELFPAY | PROVIDERS: PCP Nurse Practitioner Family; Visit Provider Urology | DX: N39.46 Mixed incontinence (principal); J44.9 Chronic obstructive pulmonary disease, unspecified; J22 Unspecified acute lower respiratory infection; N39.0 Urinary tract infection, site not specified | CPT/HCPCS: 81003 ==

== ENCOUNTER 2021-02-13 07:56 | Outpatient (CLI) | payer MEDICARE, SELFPAY ==
--- NOTE | 2021-02-13 08:00 | USCV_ITS ---
Vivian Shaw Age: 65 Gender: F : 1955 Exam Date: 02/13/2021 08:26 Ordering Phys: Hemalatha King MD ([email or web address]) Technologist: Exam Location: [facility] – [place] Indication: MURMUR EF BP: 123 / 69 HR: 51 Rhythm: Sinus Technical Quality: Good MEASUREMENTS (Male / Female) Normal Values 2D ECHO LV Diastolic Diameter PLAX 4.5 cm 4.2 - 5.9 / 3.9 - 5.3 cm LV Systolic Diameter PLAX 2.9 cm IVS Diastolic Thickness 1.0 cm 0.6 - 1.0 / 0.6 - 0.9 cm IVS Systolic Thickness 1.5 cm LVPW Diastolic Thickness 1.1 cm 0.6 - 1.0 / 0.6 - 0.9 cm LVPW Systolic Thickness 1.4 cm LVOT Diameter 2.0 cm LV Ejection Fraction 2D Teich 64.2 % LV Ejection Fraction MOD 2C 58.5 % LV Ejection Fraction 2C AL 59.0 % LA Diameter 4.1 cm LA Width 3.6 cm LA Height 5.7 cm RA Width 3.9 cm RA Height 4.4 cm Aorta at Sinotubular Diameter 2.1 cm M-MODE Aortic Annulus Diameter 3.1 cm LA Ao Ratio MM 1.4 MV E Point Septal Separation 0.8 cm DOPPLER AV Peak Velocity 156.0 cm/s LVOT Peak Velocity 111.0 cm/s AV Area Cont Eq vti 2.0 cm squared AV Area Cont Eq pk 2.2 cm squared MV Area PHT 5.0 cm squared Mitral E to A Ratio 1.1 MV E' Velocity 71.0 cm/s TR Peak Velocity 261.3 cm/s TR Peak Gradient 27.3 mmHg TV Peak E Velocity 100.0 cm/s Right Atrial Pressure 3.0 mmHg Pulmonary Artery Systolic Pressu 30.3 mmHg PV Peak Velocity 70.0 cm/s FINDINGS Left Ventricle Normal left ventricular size and systolic function, EF 60 %. Moderate hypokinesia of the basal septal segment.Grade II/IV diastolic dysfunction, moderately elevated filling pressures. Right Ventricle The right ventricle is normal in size and function. Right Atrium Mildly increased right atrial size. Left Atrium Mildly increased left atrial size. Mitral Valve Moderate mitral valve regurgitation. Moderate mitral annular calcification. Aortic Valve Mild aortic valve regurgitation. Tricuspid Valve Moderate tricuspid valve regurgitation. . Estimated pulmonary artery peak systolic pressure 30 mmHg Pulmonic Valve No gross abnormalities noted. Pericardium Normal pericardium without effusion. Aorta Normal ascending aorta dimension. CONCLUSIONS Normal left ventricular size and systolic function, EF 60 %. Moderate hypokinesia of the basal septal segment. Grade II/IV diastolic dysfunction, moderately elevated filling pressures. Mild biatrial enlargement. Moderate mitral valve regurgitation. Moderate mitral annular calcification. Mild aortic valve regurgitation. Moderate tricuspid valve regurgitation. Estimated pulmonary artery peak systolic pressure 30 mmHg. There is no pericardial effusion. There are no intracardiac masses. No previous study is available for comparison. Dr Hemalatha King MD FAC (Electronically Signed) Final Date: 13 February 2021 16:06 S
== END 2021-02-13 07:57 | disposition home or self-care (01) ==
LOC: US 08:00
PROVIDERS: PCP Nurse Practitioner Family; Visit Provider Internal Medicine Cardiovascular Disease
DX: R06.00 Dyspnea, unspecified (principal); I25.5 Ischemic cardiomyopathy; I42.0 Dilated cardiomyopathy; I08.3 Combined rheumatic disorders of mitral, aortic and tricuspid valves
CPT/HCPCS: 93306

== ENCOUNTER → 2021-06-11 13:19 | Outpatient (BNVA) | payer MEDICARE, SELFPAY | PROVIDERS: PCP Nurse Practitioner Family; Visit Provider Internal Medicine Cardiovascular Disease | DX: I25.118 Atherosclerotic heart disease of native coronary artery with other forms of angina pectoris (principal); R40.0 Somnolence; E78.5 Hyperlipidemia, unspecified; E53.8 Deficiency of other specified B group vitamins; J38.3 Other diseases of vocal cords; N39.0 Urinary tract infection, site not specified; R94.39 Abnormal result of other cardiovascular function study; R06.02 Shortness of breath; Z79.01 Long term (current) use of anticoagulants | CPT/HCPCS: 80048; 83880; 85025; 99214 ==

== ENCOUNTER 2021-06-25 12:11 | Outpatient (CLI) | payer MEDICARE, SELFPAY ==
[2021-06-25 13:46] LABS: Anion Gap 14.4 (5-19); Blood Urea Nitrogen 39 mg/dL (8-23); Calcium 9.1 mg/dL (8.5-10.5); Carbon Dioxide 26 mmol/L (22-29); Chloride 105 mmol/L (98-107); Glomerular Filtration Rate 55.1 mL/min (90-130); Glucose 90 mg/dL (65-115); NT Pro B Type Natriuretic Pept 783 pg/mL (0-125); Osmolality Calculated 301 mOsm/kg (285-295); Potassium 4.4 mmol/L (3.5-5.1); Sodium 141 mmol/L (136-145)
== END 2021-06-25 12:12 | disposition home or self-care (01) ==
LOC: LAB 12:16
PROVIDERS: PCP Nurse Practitioner Family; Visit Provider Internal Medicine Cardiovascular Disease
DX: N18.2 Chronic kidney disease, stage 2 (mild) (principal); M79.89 Other specified soft tissue disorders; I42.0 Dilated cardiomyopathy; I25.5 Ischemic cardiomyopathy
CPT/HCPCS: 36415; 80048; 83880

== ENCOUNTER 2021-07-09 09:39 | Outpatient (CLI) | payer MEDICARE, SELFPAY ==
[2021-07-09 11:07] LABS: Anion Gap 14.5 (5-19); Blood Urea Nitrogen 29 mg/dL (8-23); Calcium 10.1 mg/dL (8.5-10.5); Carbon Dioxide 26 mmol/L (22-29); Chloride 105 mmol/L (98-107); Glomerular Filtration Rate 49.4 mL/min (90-130); Glucose 92 mg/dL (65-115); NT Pro B Type Natriuretic Pept 654 pg/mL (0-125); Osmolality Calculated 297 mOsm/kg (285-295); Potassium 4.5 mmol/L (3.5-5.1); Sodium 141 mmol/L (136-145)
[2021-07-09 17:36] LABS: Bilirubin Urine Neg (Negative); Blood Urine Neg (Negative); Glucose Urine UA Norm (Normal); Ketones Urine Negative (Negative); Nitrate Urine Negative (Negative); Protein Urine Neg (Negative); Urine Appearance Clear (CLEAR); Urine Color Yellow (Yellow); Urobilinogen Urine Norm (Negative); pH Urine 6 (5-7)
[2021-07-09 17:37] LABS: Leukocyte Esterase Urine Negative (Negative); RBC Urine 0-4 /hpf (0-2); WBC Urine 0-4 /hpf (0-5)
[2021-07-09 17:59] LABS: Bacteria Urine 1+ /hpf
== END 2021-07-09 09:40 | disposition home or self-care (01) ==
PROVIDERS: PCP Nurse Practitioner Family; Visit Provider Internal Medicine Cardiovascular Disease
DX: N18.2 Chronic kidney disease, stage 2 (mild) (principal); I25.5 Ischemic cardiomyopathy; I42.0 Dilated cardiomyopathy; N39.0 Urinary tract infection, site not specified; M79.89 Other specified soft tissue disorders; R06.02 Shortness of breath
CPT/HCPCS: 36415; 80048; 81001; 83880

== ENCOUNTER → 2021-08-25 12:34 | Outpatient (BNVA) | payer MEDICARE, SELFPAY | PROVIDERS: PCP Nurse Practitioner Family; Visit Provider Urology | DX: N39.41 Urge incontinence (principal); N39.0 Urinary tract infection, site not specified; R33.9 Retention of urine, unspecified | CPT/HCPCS: 51798; 81003; 99214 ==

== ENCOUNTER 2021-09-16 13:43 | Outpatient (CLI) | payer MEDICARE, SELFPAY ==
--- NOTE | 2021-09-16 13:56 | MM_ITS ---
WS: [id number] Bilateral screening 3D tomosynthesis digital mammogram, 09/16/2021 Clinical Data: SCREENING Comparison: 08/12/2020, 10/01/2019, 02/05/2019, 12/05/2018, 12/23/2015, 01/01/2011, 01/23/2009, 10/20/2007, 10/05/2006. Findings: The breast parenchymal pattern shows fibroglandular tissue. No spiculated masses or clustered calcifi cations are seen. There are no secondary signs of carcinoma. There are mole markers on the right [address]. MM/[place] [id number] Impression: 1. Negative bilateral mammogram unchanged. 2. Recommend annual screening mammograms. BIRADS: 1-Negative FOLLOW UP: 1 Year Follow-up The CAD instrument checker was used.
== END 2021-09-16 13:44 | disposition home or self-care (01) ==
LOC: RAD 13:44
PROVIDERS: PCP Family Medicine; Visit Provider Family Medicine
DX: Z12.31 Encounter for screening mammogram for malignant neoplasm of breast (principal)
CPT/HCPCS: 77063; 77067

== ENCOUNTER 2021-11-30 07:58 | Outpatient (CLI) | payer MEDICARE, SELFPAY ==
--- NOTE | 2021-11-30 09:03 | XR_ITS ---
WS: [id number] DEXA (DUAL ENERGY X-RAY ABSORPTIOMETRY) Bone mineral density was performed using a Quack machine. HISTORY: SCREENING FOR OSTEOPOROSIS COMPARISON: None available. Lumbar spine BMD (L1-L4): 1.292 g/cm2 T score: 0.9 Z score: 2.4 Total hip BMD: Left: 0.877 g/cm2. T score: -1.0 Z score: 0.2 Right: 0.800 g/cm2. T score: -1.6 Z score: -0.4 10 year probability of a major osteoporotic fracture is 9.7%. XR/XR DEXA axial skeleton* [id number] IMPRESSION: OSTEOPENIA based upon the WHO classification for females.
== END 2021-11-30 07:59 | disposition home or self-care (01) ==
LOC: RAD 08:03
PROVIDERS: PCP Family Medicine; Visit Provider Family Medicine
DX: Z13.820 Encounter for screening for osteoporosis (principal); M85.80 Other specified disorders of bone density and structure, unspecified site; I25.118 Atherosclerotic heart disease of native coronary artery with other forms of angina pectoris; I10 Essential (primary) hypertension
CPT/HCPCS: 36415; 77080; 80048; 99214

== ENCOUNTER → 2022-05-26 11:23 | Outpatient (BNVA) | payer MEDICARE, SELFPAY | PROVIDERS: PCP Family Medicine; Visit Provider Family Medicine | DX: N39.41 Urge incontinence (principal); I10 Essential (primary) hypertension; E78.5 Hyperlipidemia, unspecified; N18.9 Chronic kidney disease, unspecified | CPT/HCPCS: 80053; 80061; 81000; 83880; 85025 ==

== ENCOUNTER → 2022-06-01 13:43 | Outpatient (BNVA) | payer MEDICARE, SELFPAY | PROVIDERS: PCP Family Medicine; Visit Provider Internal Medicine Cardiovascular Disease | DX: I25.118 Atherosclerotic heart disease of native coronary artery with other forms of angina pectoris (principal); E78.5 Hyperlipidemia, unspecified; G47.33 Obstructive sleep apnea (adult) (pediatric); J44.9 Chronic obstructive pulmonary disease, unspecified; I12.9 Hypertensive chronic kidney disease with stage 1 through stage 4 chronic kidney disease, or unspecified chronic kidney disease; N18.30 Chronic kidney disease, stage 3 unspecified; Z79.82 Long term (current) use of aspirin | CPT/HCPCS: 99214 ==

== ENCOUNTER → 2022-08-12 15:21 | Outpatient (BNVA) | payer MEDICARE, SELFPAY | PROVIDERS: PCP Family Medicine; Referring Provider Nurse Practitioner; Visit Provider Physician Assistant | DX: S32.009A Unspecified fracture of unspecified lumbar vertebra, initial encounter for closed fracture (principal); X58.XXXA Exposure to other specified factors, initial encounter; M54.2 Cervicalgia | CPT/HCPCS: 72040; 99203 ==

== ENCOUNTER → 2022-08-26 10:48 | Outpatient (BNVA) | payer MEDICARE, SELFPAY | PROVIDERS: PCP Family Medicine; Visit Provider Urology | DX: R33.9 Retention of urine, unspecified (principal) | CPT/HCPCS: 51798; 81003; 99214 ==

== ENCOUNTER → 2022-09-09 08:41 | Outpatient (BNVA) | payer MEDICARE, SELFPAY | PROVIDERS: PCP Family Medicine; Visit Provider Physician Assistant | DX: S32.009A Unspecified fracture of unspecified lumbar vertebra, initial encounter for closed fracture (principal); X58.XXXA Exposure to other specified factors, initial encounter | CPT/HCPCS: 72100; 99213 ==

== ENCOUNTER 2022-09-22 15:03 | Outpatient (CLI) | payer MEDICARE, SELFPAY ==
--- NOTE | 2022-09-22 15:13 | MM_ITS ---
WS: [email or web address] BILATERAL 3D TOMOSYNTHESIS DIGITAL SCREENING MAMMOGRAPHY WITH CAD CLINICAL INFORMATION: SCREENING HISTORY: Screening mammogram. No current complaints. COMPARISON: 2021 TECHNIQUE: Bilateral CC and MLO views. FINDINGS: Scattered fibroglandular densities bilaterally. No suspicious focal mass, asymmetry, calcifications, or architectural distortion. No evidence of malignancy. Vascular calcification. Incidental punctate c alcifications. MM/[place] [id number] IMPRESSION: BI-RADS: 2-Benign FOLLOW UP: 1 Year Follow-up Recommend return to annual screening mammography.
== END 2022-09-22 15:04 | disposition home or self-care (01) ==
PROVIDERS: PCP Family Medicine; Visit Provider Family Medicine
DX: Z12.31 Encounter for screening mammogram for malignant neoplasm of breast (principal)
CPT/HCPCS: 77063; 77067

== ENCOUNTER → 2022-12-14 13:24 | Outpatient (BNVA) | payer MEDICARE, SELFPAY | PROVIDERS: PCP Family Medicine; Visit Provider Internal Medicine Cardiovascular Disease | DX: I25.118 Atherosclerotic heart disease of native coronary artery with other forms of angina pectoris (principal); I12.9 Hypertensive chronic kidney disease with stage 1 through stage 4 chronic kidney disease, or unspecified chronic kidney disease; N18.30 Chronic kidney disease, stage 3 unspecified; G47.33 Obstructive sleep apnea (adult) (pediatric); Z99.89 Dependence on other enabling machines and devices; E78.5 Hyperlipidemia, unspecified; R53.83 Other fatigue | CPT/HCPCS: 99214 ==

== ENCOUNTER → 2022-12-15 09:52 | Outpatient (BNVA) | payer MEDICARE, SELFPAY | PROVIDERS: PCP Family Medicine; Visit Provider Family Medicine | DX: S32.009A Unspecified fracture of unspecified lumbar vertebra, initial encounter for closed fracture (principal); I10 Essential (primary) hypertension; E55.9 Vitamin D deficiency, unspecified; X58.XXXA Exposure to other specified factors, initial encounter; Z79.899 Other long term (current) drug therapy | CPT/HCPCS: 80053; 80061; 82306; 83036; 85025 ==

== ENCOUNTER → 2023-04-26 15:35 | Outpatient (BNVA) | payer MEDICARE, SELFPAY | PROVIDERS: PCP Family Medicine; Visit Provider Nurse Practitioner Family | DX: I10 Essential (primary) hypertension (principal); R06.02 Shortness of breath | CPT/HCPCS: 71046; 80053; 85025; 93005 ==

== ENCOUNTER → 2023-05-30 15:35 | Outpatient (BNVA) | payer MEDICARE, SELFPAY | PROVIDERS: PCP Nurse Practitioner Family; Visit Provider Nurse Practitioner Family | DX: R05.9 Cough, unspecified (principal) | CPT/HCPCS: 87400; 87426 ==

== ENCOUNTER → 2023-07-07 14:35 | Outpatient (BNVA) | payer MEDICARE, SELFPAY | PROVIDERS: PCP Nurse Practitioner Family; Visit Provider Internal Medicine Cardiovascular Disease | DX: R07.9 Chest pain, unspecified (principal); I25.118 Atherosclerotic heart disease of native coronary artery with other forms of angina pectoris; E78.5 Hyperlipidemia, unspecified; I11.0 Hypertensive heart disease with heart failure; I50.9 Heart failure, unspecified; I45.2 Bifascicular block; R94.31 Abnormal electrocardiogram [ECG] [EKG] | CPT/HCPCS: 93005; 99214 ==

== ENCOUNTER → 2023-07-25 10:47 | Outpatient (BNVA) | payer MEDICARE, SELFPAY | PROVIDERS: PCP Nurse Practitioner Family; Visit Provider Nurse Practitioner Family | DX: J06.9 Acute upper respiratory infection, unspecified (principal); J44.1 Chronic obstructive pulmonary disease with (acute) exacerbation; R13.10 Dysphagia, unspecified | CPT/HCPCS: 71046; 87400; 87426 ==

== ENCOUNTER → 2023-12-06 09:54 | Outpatient (BNVA) | payer MEDICARE, SELFPAY | PROVIDERS: PCP Nurse Practitioner Family; Visit Provider Nurse Practitioner Family | DX: I10 Essential (primary) hypertension (principal); E78.5 Hyperlipidemia, unspecified; R53.83 Other fatigue; E55.9 Vitamin D deficiency, unspecified; Z79.899 Other long term (current) drug therapy; E78.2 Mixed hyperlipidemia; R13.10 Dysphagia, unspecified | CPT/HCPCS: 80053; 80061; 81003; 82306; 83036; 84443; 85025 ==

== ENCOUNTER → 2024-01-10 10:41 | Outpatient (BNVA) | payer MEDICARE, SELFPAY | PROVIDERS: PCP Nurse Practitioner Family; Visit Provider Internal Medicine Cardiovascular Disease | DX: I49.9 Cardiac arrhythmia, unspecified (principal); I11.0 Hypertensive heart disease with heart failure; I50.32 Chronic diastolic (congestive) heart failure; I25.118 Atherosclerotic heart disease of native coronary artery with other forms of angina pectoris; I95.89 Other hypotension; E78.5 Hyperlipidemia, unspecified; E78.2 Mixed hyperlipidemia; R25.2 Cramp and spasm | CPT/HCPCS: 99214 ==

== ENCOUNTER 2024-01-11 10:05 | Outpatient (CLI) | payer MEDICARE, SELFPAY ==
--- NOTE | 2024-01-11 10:20 | MM_ITS ---
WS: [id number] SCREENING DIGITAL BREAST TOMOSYNTHESIS MAMMOGRAM WITH CAD HISTORY: Z12.31 - Encounter for screening mammogram for malignant ... COMPARISON: 02/05/2019, 10/01/2019, 09/22/2022 and 09/16/2021 Bilateral CC and MLO with tomosynthesis and synthetic mammography submitted. Computer aided detection analyzed. Breast composition: There are scattered areas of fibroglandular density. Amorphous calcifications in the upper outer quadrant at a middle depth within the RIGHT breast. Calcifications are within a slig ht ductal distribution. These calcifications have been imaged before but appear more prominent on tod ay's examination. There are also bilateral vascular calcifications. MM/MM scr BI tomosynthesis [id number] IMPRESSION: BI-RADS: 0 - Incomplete: Need additional imaging evaluation. FOLLOW UP: Need Additional Imaging RIGHT BREAST: Magnification views of suspicious calcification CC and MLO. True ML.
== END 2024-01-11 10:06 | disposition home or self-care (01) ==
LOC: MOBLMAM 10:10
PROVIDERS: PCP Nurse Practitioner Family; Visit Provider Nurse Practitioner Family
DX: Z12.31 Encounter for screening mammogram for malignant neoplasm of breast (principal); R92.323 Mammographic fibroglandular density, bilateral breasts; R92.1 Mammographic calcification found on diagnostic imaging of breast
CPT/HCPCS: 77063; 77067

== ENCOUNTER 2024-03-05 09:33 | Outpatient (CLI) | payer MEDICARE, SELFPAY ==
--- NOTE | 2024-03-05 10:30 | MM_ITS ---
WS: [email or web address] ADDITIONAL VIEWS LEFT MAMMOGRAM WITH DIGITAL BREAST TOMOSYNTHESIS. HISTORY: Calcifications upper outer quadrant RIGHT breast. COMPARISON: 01/11/2024 Magnification views RIGHT breast in CC, MLO projections and true ML submitted with digital breast enrico osynthesis and SM. Persistent cluster of calcifications in the upper outer quadrant RIGHT breast at middle depth. Some o f these are pleomorphic. These calcifications have become more prominent and increased in size and nu mber since 2022. No distortion or mass associated with the calcifications. These calcifications may b e associated with breast vascularity. MM/MM diag [place] tomosynthesis [id number] IMPRESSION: BI-RADS: 4- Suspicious Finding - Biopsy Should be Considered FOLLOW UP: Biopsy Recommended Stereotactic RIGHT breast biopsy recommended of the calcifications in the upper outer quadrant. Notified MILLIE Garcia at 03/05/2024 10:32 AM. Discussed with Madelin at [facility].
== END 2024-03-05 09:34 | disposition home or self-care (01) ==
LOC: RAD 09:36
PROVIDERS: PCP Nurse Practitioner Family; Visit Provider Nurse Practitioner Family
DX: R92.8 Other abnormal and inconclusive findings on diagnostic imaging of breast (principal); R92.1 Mammographic calcification found on diagnostic imaging of breast
CPT/HCPCS: 77061; G0279

== ENCOUNTER 2024-04-10 12:17 | Outpatient (CLI) | payer MEDICARE, SELFPAY ==
--- NOTE | 2024-04-10 | MM_ITS ---
WS: [email or web address] STEREOTACTIC RIGHT BREAST BIOPSY WITH VACUUM ASSISTANCE. History: Heterogeneous RIGHT breast calcifications. Biopsy recommended for suspicious calcifications. Procedure, risks, and complications were discussed the patient who agreed to proceed. Prior imaging was reviewed. Cluster of calcifications within the upper outer RIGHT breast are localized. Stereotactic imaging was performed. Patient was prepped and draped in usual sterile fashion. After 1% lidocaine, calcifications were targeted stereotactically in the RIGHT breast. Small incision was made. Needle advanced into the cluster of calcifications RIGHT breast with imaging demonstrating appropriate position relative to the calcifications. Multiple vacuum-assisted core biopsies were obtained. Postprocedure imaging demonstrates calcifications within the biopsy specimen. The biopsy cavity was lavaged. Titanium clip was placed at the biopsy site. Postprocedure imaging demonstrates clip in good position. No immediate complications. MM/[place] [id number] IMPRESSION: 1. Uncomplicated vacuum-assisted stereotactic biopsy of calcifications in the upper outer RIGHT breast. 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 Associated microcalcifications. Breast prognostic profile is pending and will be reported separately by angeli walsh. Recommend breast surgery consultation.
--- NOTE | 2024-04-10 | MM_ITS ---
WS: [email or web address] STEREOTACTIC RIGHT BREAST BIOPSY WITH VACUUM ASSISTANCE. History: Heterogeneous RIGHT breast calcifications. Biopsy recommended for suspicious calcifications. Procedure, risks, and complications were discussed the patient who agreed to proceed. Prior imaging was reviewed. Cluster of calcifications within the upper outer RIGHT breast are localized. Stereotactic imaging was performed. Patient was prepped and draped in usual sterile fashion. After 1% lidocaine, calcifications were targeted stereotactically in the RIGHT breast. Small incision was made. Needle advanced into the cluster of calcifications RIGHT breast with imaging demonstrating appropriate position relative to the calcifications. Multiple vacuum-assisted core biopsies were obtained. Postprocedure imaging demonstrates calcifications within the biopsy specimen. The biopsy cavity was lavaged. Titanium clip was placed at the biopsy site. Postprocedure imaging demonstrates clip in good position. No immediate complications. MM/MM surgical specimen RT IMPRESSION: 1. Uncomplicated vacuum-assisted stereotactic biopsy of calcifications in the upper outer RIGHT breast. 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 Associated microcalcifications. Breast prognostic profile is pending and will be reported separately by angeli walsh. Recommend breast surgery consultation.
--- NOTE | 2024-04-10 13:00 | MM_ITS ---
WS: [email or web address] STEREOTACTIC RIGHT BREAST BIOPSY WITH VACUUM ASSISTANCE. History: Heterogeneous RIGHT breast calcifications. Biopsy recommended for suspicious calcifications. Procedure, risks, and complications were discussed the patient who agreed to proceed. Prior imaging was reviewed. Cluster of calcifications within the upper outer RIGHT breast are localized. Stereotactic imaging was performed. Patient was prepped and draped in usual sterile fashion. After 1% lidocaine, calcifications were targeted stereotactically in the RIGHT breast. Small incision was made. Needle advanced into the cluster of calcifications RIGHT breast with imaging demonstrating appropriate position relative to the calcifications. Multiple vacuum-assisted core biopsies were obtained. Postprocedure imaging demonstrates calcifications within the biopsy specimen. The biopsy cavity was lavaged. Titanium clip was placed at the biopsy site. Postprocedure imaging demonstrates clip in good position. No immediate complications. MM/[place] [id number] IMPRESSION: 1. Uncomplicated vacuum-assisted stereotactic biopsy of calcifications in the upper outer RIGHT breast. 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 Associated microcalcifications. Breast prognostic profile is pending and will be reported separately by angeli walsh. Recommend breast surgery consultation.
[2024-04-17 10:39] LABS: Breast Profile ER,PR,HER2,Ki-6 See Report
== END 2024-04-10 12:18 | disposition home or self-care (01) ==
LOC: RAD 12:18
PROVIDERS: PCP Nurse Practitioner Family; Visit Provider Nurse Practitioner Family
DX: R92.8 Other abnormal and inconclusive findings on diagnostic imaging of breast (principal); D05.11 Intraductal carcinoma in situ of right breast; N64.89 Other specified disorders of breast
CPT/HCPCS: 19081; 77065; 88305; 88361; 88374

== ENCOUNTER 2024-05-26 16:01 | Emergency (ER) | payer MEDICARE, SELFPAY ==
[2024-05-26] VITALS (11 sets, daily range): BP systolic 85–128; BP diastolic 50–69; PULSE 55–87; RESP 16–18; TEMP 36.4; O2SAT 93–96; BMI 28.3
--- NOTE | 2024-05-26 17:17 | XRR_ITS ---
PROCEDURE INFORMATION: Exam: XR Chest Exam date and time: 05/26/2024 5:23 PM Age: 69 years old Clinical indication: Hypotension; Recent breast CA diagnosis TECHNIQUE: Imaging protocol: Radiologic exam of the chest. Views: 1 view. COMPARISON: CR XR chest 2V* [id number] 07/25/2023 11:44 AM FINDINGS: Lungs: Unremarkable. No consolidation. Pleural spaces: Unremarkable. No pleural effusion. No pneumothorax. Heart/Mediastinum: Unremarkable. No cardiomegaly. Bones/joints: Unremarkable. XR/XR chest 1V portable [id number] IMPRESSION: No acute cardiopulmonary findings.
[2024-05-26] MEDS: sodium chloride 0.9% 1,000 ML 999 ML IV (17:25)
[2024-05-26 18:11] LABS: Basophils % 0.4 %; Eosinophils # 0.1 10^3/uL (0.0-0.8); Eosinophils % 1.1 %; Hematocrit 31.4 % (36-47); Lymphocytes # 2.4 10^3/uL (0.8-4.8); Lymphocytes % 20.8 %; Mean Corpuscular HGB Conc 32.5 g/dL (30-55); Mean Corpuscular Volume 98.4 fl (85-98); Mean Platelet Volume 11.2 fL (7.4-10.4); Monocytes # 1.2 10^3/uL (0.2-0.9); Monocytes % 10.4 %; Neutrophils # 7.58 10^3/uL (1.8-7.7); Neutrophils % 66.7 %; Nucleated Red Blood Cells % 0 %; Platelet Count 150 10^3/cmm (157-399); Red Blood Count 3.19 10^6/uL (3.85-5.65); Red Cell Distribution Width 15.3 % (12.1-15.1); White Blood Count 11.35 10^3/uL (3.29-11.43)
--- NOTE | 2024-05-26 18:17 | W.ED.GENADLT ---
HPI - General Adult General: Chief complaint: General Medical Stated complaint: low blood pressure Time Seen by Provider: 05/26/24 16:24 History of Present Illness: 69-year-old female presents the ER chief complaint of hypotension and patient recently diagnosed with breast cancer through the right breast status postbiopsy she does endorse she is on medications for her heart that does lower her blood pressure and heart rate patient reports no recent medication changes in regards to this she denies any shortness of breath just reports some mild chest pressure. Patient denies any flu accumulation in her legs or edema patient presents to the emergency department for further assessment and management patient noted her blood pressure prior to arrival was 80/50. Patient does report significant appetite reduction over the last week or so she denies any bloody stools or bloody emesis. Associated symptoms: Reports malaise; Deny chest pain, dyspnea, headache(s), nausea, rash, palpitations or vomiting Related Data Home Medications ?Medication ?Instructions ?Recorded ?Confirmed aspirin 81 mg tablet,delayed 81 mg PO DAILY 03/01/19 05/26/24 release (Adult Aspirin Regimen) acetaminophen 500 mg tablet 500 mg PO QID PRN Pain 05/29/20 05/26/24 (Tylenol Extra Strength) isosorbide mononitrate 30 mg 30 mg PO DAILY 05/26/24 05/26/24 tablet,extended release 24 hr lisinopril 2.5 mg tablet 2.5 mg PO DAILY 05/26/24 05/26/24 simvastatin 40 mg tablet 40 mg PO DAILY 05/26/24 05/26/24 tamsulosin 0.4 mg capsule 0.4 mg PO DAILY 05/26/24 05/26/24 Previous Rx's ?Medication ?Instructions ?Recorded methenamine hippurate 1 gram tablet See Rx Instructions .Route 08/17/22 .COMPLEX #180 tabs oxybutynin chloride 10 mg 20 mg (2 x 10 mg) PO DAILY #60 tabs 08/26/22 tablet,extended release 24 hr solifenacin 10 mg tablet 10 mg PO DAILY #30 tabs 08/26/22 carvedilol 3.125 mg tablet 3.125 mg PO DAILY #90 tabs 05/10/23 magnesium L-lactate 84 mg 84 mg PO BID 30 days #60 tabs 01/10/24 tablet,extended release (Magtab) alendronate 35 mg tablet See Rx Instructions .Route 03/29/24 .COMPLEX #12 tabs fluticasone propionate 50 1 spray intranasal DAILY #16 grams 04/03/24 mcg/actuation nasal spray,suspension (Flonase Allergy Relief) albuterol sulfate 90 mcg/actuation 1 inh inhalation Q4H PRN shortness 05/26/24 aerosol inhaler (Ventolin HFA) of breath or wheezing #6.7 grams azithromycin 500 mg tablet See Rx Instructions PO .COMPLEX #3 05/26/24 tabs prednisone 10 mg tablets in a dose 10 mg PO DIRECTED #21 ea 05/26/24 pack Allergies Allergy/AdvReac Type Severity Reaction Status Date / Time naproxen Allergy Intermediate Unknown Verified 04/25/24 09:12 tramadol Allergy Unknown Verified 04/25/24 09:12 Review of Systems General: Reports: 10 or more systems reviewed and unremarkable except in HPI and below Const: Reports: fatigue and malaise; Denies: fever(s), chills or daytime sleepiness Eyes: Denies: change in vision or blurry vision Card: Denies: chest pain or palpitations Resp: Denies: dyspnea or productive cough GI: Denies: abdominal pain, nausea or vomiting : Denies: flank pain Musc: Denies: extremity pain or extremity swelling Skin/Breast: Denies: rash or pruritus Neuro: Denies: headache(s) Psych: Denies: anxiety or depression Ryan/Lymph: Denies: easy bleeding All/Imm: Denies: urticaria, throat swelling or facial swelling PFSH ED PFSH: Medical History Sciatica Ductal carcinoma of right breast Leg cramps Abnormal mammogram of right breast Enrolled in chronic care management Colon cancer screening Breast cancer screening by mammogram Esophageal hypertension COPD exacerbation Lower respiratory infection Mixed hyperlipidemia Medication management Anemia Otitis media Vaginal Papanicolaou smear not required due to history of hysterectomy BMI 23.0-23.9, adult Shingles Chronic kidney disease DDD (degenerative disc disease), lumbar Chronic coughing Back Pain Abnormal mammogram Fall at home Compression fracture Vitamin B12 deficiency (non anemic) Vitamin D deficiency Shortness of breath COPD (chronic obstructive pulmonary disease) Somnolence, daytime Urgency incontinence Obesity (BMI 30.0-34.9) Urinary retention Recurrent UTI Stress incontinence (female) (male) Abnormal cardiovascular stress test Fatigue Dyslipidemia Chronic vulvitis Being treated with chronic topical high potency steroids (augmented betamethasone) Chronic kidney disease, stage 3 With chronic anemia Coronary artery disease of [place] artery of [place] heart with stable angina pectoris Cardiac catheterization in May 2019 revealed. Moderate to severe diffuse disease in the proximal to mid LAD. Total occlusion of the distal LAD. Mild diffuse disease in the other vessels. Diminished LV ejection fraction of 40%. LVEDP of 20 mmHg. The right heart catheterization revealed RA pressure of 8, RV pressure of 31 and PA pressure of 32/13 with a mean of 19 mmHg. The cardiac output was 4.06with an index of 2.3 by [employer]. GERD (gastroesophageal reflux disease) HTN (hypertension) CYNTHIA (obstructive sleep apnea) Remote history and was advised to have repeat study-by Dr Mccormick Esophageal dysphagia Surgical History History of back surgery S/P hysterectomy (~2002) FRANCHESKA, ?BSO, Posterior colporrhaphy. Performed by Dr. Pedroza at [facility] and [place], [place] S/P right knee arthroscopy (~2005) Performed [address] Dr[address] Fry at [facility] in [place], [place] S/P knee replacement (05/04/17) Right H/O vaginal surgery (02/06/19) Anterior vaginal colporrhaphy, Cystoscopy, Suprapubic catheter insertion. Diagnosis: Cystocele, Urinary retention with incomplete emptying. Performed by Dr. Aryan Sin at [facility] and [place], [place]. Family History Brother Diabetes Hypertension Heart disease CAD (coronary artery disease) Cancer Mother , in her 60's Diabetes Hypertension Heart disease CAD (coronary artery disease) Father , in his 80's Stroke Cancer Lung disease Sister CAD (coronary artery disease) Stroke Family/Other CAD (coronary artery disease) Cancer Dementia Stroke Denies family history of Clotting disorder Chronic kidney disease (CKD) Suicide Anesthesia complication Bleeding disorder Social History Smoking and tobacco/nicotine status: never used tobacco/nicotine Second hand smoke exposure: Yes Alcohol intake: never Substance/Drug Use: never Marital status: Current occupational status: employed 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 Female Reproductive History: Para: 3 Physical Exam Const: COMMON NORMALS: no acute distress, patient oriented x3 and healthy appearing HENMT: COMMON NORMALS: normocephalic and atraumatic HEAD & SCALP: normocephalic and atraumatic Eye: COMMON NORMALS: Equal, round and reactive pupils present and EOMs intact bilaterally PUPIL: Yes Equal, round and reactive pupils present Neck/C-Spine: COMMON NORMALS: full ROM, supple and no JVD Lymph: LYMPHATIC: no lymphadenopathy noted Chest: COMMONS NORMALS: normal inspection of the chest and normal palpation of entire chest wall Resp: COMMON NORMALS: normal respiratory effort, No retractions and clear to auscultation bilaterally EFFORT & INSPECTION: Yes able to speak in complete sentences and Yes symmetric chest movement AUSCULTATION: clear to auscultation bilaterally Cardio: COMMON NORMALS: no JVD, regular rate and regular rhythm RATE: regular rate RHYTHM: regular rhythm GI: COMMON NORMALS: Normal to inspection, nondistended, normoactive bowel sounds present, Soft to palpation and non-tender INSPECTION: Yes normal to inspection PALPATION: Yes Soft to palpation : COMMON NORMALS: Yes no CVA tenderness BLADDER/KIDNEY EXAM: Yes no CVA tenderness Back/Pelvis: COMMON NORMALS: no CVA tenderness Extremity: COMMON NORMALS: normal to inspection and full ROM Neuro: COMMON NORMALS: patient oriented x3, CN's II-XII intact bilaterally, moves all extremities and no focal motor deficits Psych: COMMON NORMALS: mental status grossly normal, Normal thought process present, cooperative and normal affect THOUGHT PROCESS: Normal thought process present Skin: COMMON NORMALS: no rashes or lesions noted GENERAL SKIN EXAM: no rashes or lesions noted Course Vital Signs: Vital signs: Vital Signs Temperature 97.6 F 05/26/24 19:30 Pulse Rate 87 05/26/24 19:30 Respiratory Rate 18 05/26/24 19:30 Blood Pressure 119/69 05/26/24 19:30 Pulse Oximetry 94 05/26/24 19:30 Oxygen Delivery Me thod Room Air 05/26/24 19:30 MDM - General Adult Medical Decision Making Due to patient's symptoms and condition basic cardiopulmonary workup will be obtained IV fluids were added for agitation will continue to follow. Patient's current blood pressure is 90/50. Patient's blood pressure responded to IV fluids patient was found of a little bit dehydration on her lab work with a questionable pneumonia on her CT angiogram patient did have a focal consolidation medial right upper lobe will be starting the patient on some Rocephin for this patient's oxygenation is currently 96% on room air which she appears in no acute respiratory distress anticipate discharge home pending Rocephin provided by staff did advise further follow-up primary care in 3 to 5 days in which to return the interim if any of her symptoms persist or worse. Lab Data 05/26/24 18:05 05/26/24 18:05 Radiology Impressions Chest X-Ray 05/26/24 17:17 IMPRESSION: No acute cardiopulmonary findings. Chest CTA 05/26/24 19:14 IMPRESSION: 1. Negative for pulmonary embolus. 2. Cardiomegaly with severe coronary artery calcifications. 3. Reflux of contrast into hepatic veins, which can be seen with right heart dysfunction. 4. Focal consolidation within medial right upper lobe, concerning for pneumonia. 5. Mediastinal lymphadenopathy, nonspecific finding but may be reactive. 6. Emphysema. Laboratory Results WBC 11.35 10^3/uL (3.29-11.43) 05/26/24 18:05 RBC 3.19 10^6/uL (3.85-5.65) L 05/26/24 18:05 Hgb 10.20 g/dL (11.27-16.99) L 05/26/24 18:05 Hct 31.4 % (36-47) L 05/26/24 18:05 MCV 98.4 fl (85-98) H 05/26/24 18:05 MCH 32.0 pg (27-33) 05/26/24 18:05 MCHC 32.5 g/dL (30-55) 05/26/24 18:05 RDW 15.3 % (12.1-15.1) H 05/26/24 18:05 Plt Count 150 10^3/cmm (157-399) L 05/26/24 18:05 MPV 11.2 fL (7.4-10.4) H 05/26/24 18:05 Neut % (Auto) 66.7 % 05/26/24 18:05 Lymph % (Auto) 20.8 % 05/26/24 18:05 Gordon % (Auto) 10.4 % 05/26/24 18:05 Eos % (Auto) 1.1 % 05/26/24 18:05 Baso % (Auto) 0.4 % 05/26/24 18:05 Neut # (Auto) 7.58 10^3/uL (1.8-7.7) 05/26/24 18:05 Lymph # (Auto) 2.4 10^3/uL (0.8-4.8) 05/26/24 18:05 Gordon # (Auto) 1.2 10^3/uL (0.2-0.9) H 05/26/24 18:05 Eos # (Auto) 0.1 10^3/uL (0.0-0.8) 05/26/24 18:05 Baso # (Auto) 0.0 10^3/uL (0.0-0.1) 05/26/24 18:05 Nucleated RBC % (auto) 0 % 05/26/24 18:05 Nucleated RBCs # 0.0 /100WBC 05/26/24 18:05 Sodium 139 mmol/L (136-145) 05/26/24 18:05 Potassium 4.1 mmol/L (3.5-5.1) 05/26/24 18:05 Chloride 104 mmol/L (98-107) 05/26/24 18:05 Carbon Dioxide 23 mmol/L (22-29) 05/26/24 18:05 Anion Gap 16.1 (5-19) 05/26/24 18:05 BUN 32 mg/dL (8-23) H 05/26/24 18:05 Creatinine 1.5 mg/dL (0.5-0.9) H 05/26/24 18:05 GFR Calculation Not Reportable 05/26/24 18:05 Glucose 99 mg/dL (65-115) 05/26/24 18:05 Calculated Osmolality 295 mOsm/kg (285-295) 05/26/24 18:05 Lactic Acid 0.9 mmol/L (0.5-2.2) 05/26/24 18:05 Calcium 9.2 mg/dL (8.5-10.5) 05/26/24 18:05 Total Bilirubin 0.7 mg/dL (0.15-1.2) 05/26/24 18:05 AST 26 U/L (0-32) 05/26/24 18:05 ALT 15 U/L (0-33) 05/26/24 18:05 Alkaline Phosphatase 60 U/L (35-105) 05/26/24 18:05 Troponin T Baseline 29 ng/L (0-10) H 05/26/24 18:05 C-Reactive Protein 145.4 mg/L (0.0-4.9) H 05/26/24 18:05 NT-Pro-B Natriuret Pep 2252 pg/mL (0-125) H 05/26/24 18:05 Total Protein 6.1 g/dL (6.6-8.7) L 05/26/24 18:05 Albumin 3.6 g/dL (3.5-5.2) 05/26/24 18:05 Globulin 2.5 g/dL (1.3-4.6) 05/26/24 18:05 All radiology interpretation(s) finalized by discharge Discharge Plan Discharge Patient Disposition: Home Clinical Impression: Dehydration, Transient hypotension, Pneumonia Condition: Stable Prescriptions: New azithromycin 500 mg tablet See Rx Instructions .ROUTE .COMPLEX Qty: 3 0RF Rx Instructions: For 250 mg dose pack: take 500 mg today (day 1), then 250 mg for 4 days (days 2-5) albuterol sulfate [Ventolin HFA] 90 mcg/actuation HFA aerosol inhaler 1 inh inhalation Q4H PRN (Reason: shortness of breath or wheezing) Qty: 6.7 0RF prednisone 10 mg tablets,dose pack 10 mg PO DIRECTED Qty: 21 0RF Rx Instructions: see taper instructions No Action aspirin [Adult Aspirin Regimen] 81 mg tablet,delayed release (DR/EC) 81 mg PO DAILY acetaminophen [Tylenol Extra Strength] 500 mg tablet 500 mg PO QID PRN (Reason: Pain) oxybutynin chloride 10 mg tablet extended release 24hr 20 mg PO DAILY Qty: 60 12RF solifenacin 10 mg tablet 10 mg PO DAILY Qty: 30 12RF fluticasone propionate [Flonase Allergy Relief] 50 mcg/actuation spray,suspension 1 spray intranasal DAILY Qty: 16 12RF Rx Instructions: administer into each nostril magnesium L-lactate [Magtab] 84 mg tablet extended release 84 mg PO BID 30 Days Qty: 60 5RF methenamine hippurate 1 gram tablet See Rx Instructions .ROUTE .COMPLEX Qty: 180 3RF Dose Instruction: TAKE 1 TABLET BY MOUTH TWICE DAILY. TAKE 1000 MG OF VITAMIN C WITH EACH DOSE OF METHENAMINE. Rx Instructions: TAKE 1 TABLET BY MOUTH TWICE DAILY. TAKE 1000 MG OF VITAMIN C WITH EACH DOSE OF METHENAMINE. carvedilol 3.125 mg tablet 3.125 mg PO DAILY Qty: 90 3RF Patient Comments: Pt reports peanut shaker cut back to one tab daily alendronate 35 mg tablet See Rx Instructions .ROUTE .COMPLEX Qty: 12 0RF Dose Instruction: Take 1 tablet by mouth once a week Rx Instructions: Take 1 tablet by mouth once a week isosorbide mononitrate 30 mg tablet extended release 24 hr 30 mg PO DAILY Rx Instructions: Take 1 tablet by mouth once daily simvastatin 40 mg tablet 40 mg PO DAILY Rx Instructions: Take 1 tablet by mouth once daily lisinopril 2.5 mg tablet 2.5 mg PO DAILY Rx Instructions: Take 1 tablet by mouth once daily tamsulosin 0.4 mg capsule 0.4 mg PO DAILY Rx Instructions: Take 1 capsule by mouth once daily Discharge Orders: Discharge ED (Routine); Ordered 05/26/24 Ordered By: Pedro Pablo Garrett Referrals: MARCIN Armando, CAR FILLER [Primary Care Provider] - 1-3 days Discharge Diet: Cardiac Discharge Activity: Increase activity as tolerated Patient Instructions: Dehydration - Adult, Hypotension (ED), Pneumonia (ED) Activity Restrictions/Additional Instructions: Take medications as prescribed please further follow-up with primary care in 2 to 3 days in which please return the interim if any of your symptoms persist or worsens recommend for you to increase your p.o. intake of oral fluids to reduce the likelihood of blood pressure dropping as well as dehydration. Print Language: Vincentian Coding Level of Care Code ED Dental Hygiene Administrative Assistant for Wilmar Nash
[2024-05-26 18:29] LABS: Troponin(5th) Baseline 29 ng/L (0-10)
[2024-05-26 18:30] LABS: Lactic Sepsis W/Reflex 0.9 mmol/L (0.5-2.2)
[2024-05-26 18:48] LABS: Alanine Aminotransferase 15 U/L (0-33); Albumin Level 3.6 g/dL (3.5-5.2); Alkaline Phosphatase 60 U/L (35-105); Anion Gap 16.1 (5-19); Aspartate Amino Transferase 26 U/L (0-32); Blood Urea Nitrogen 32 mg/dL (8-23); C Reactive Protein 145.4 mg/L (0.0-4.9); Calcium 9.2 mg/dL (8.5-10.5); Carbon Dioxide 23 mmol/L (22-29); Chloride 104 mmol/L (98-107); Creatinine Clr Calc Pharmacy 29.1123; Globulin 2.5 g/dL (1.3-4.6); Glucose 99 mg/dL (65-115); NT Pro B Type Natriuretic Pept 2252 pg/mL (0-125); Osmolality Calculated 295 mOsm/kg (285-295); Potassium 4.1 mmol/L (3.5-5.1); Sodium 139 mmol/L (136-145); Total Bilirubin 0.7 mg/dL (0.15-1.2); Total Protein 6.1 g/dL (6.6-8.7)
--- NOTE | 2024-05-26 19:14 | CTR_ITS ---
PROCEDURE INFORMATION: Exam: CTA Chest With Contrast Exam date and time: 05/26/2024 7:24 PM Age: 69 years old Clinical indication: Shortness of breath and other: Hypotensive; SOB with hypotension. Recent diagnosis of RT sided dcis. ; Additional info: SOB with elevated bnp/trop recent dx breast CA TECHNIQUE: Imaging protocol: Computed tomographic angiography of the chest with contrast. Exam focused on the arteries. 3D rendering (Not supervised by radiologist): MIP and/or 3D reconstructed images were created by the technologist. Radiation optimization: All CT scans at this facility use at least one of these dose optimization techniques: automated exposure control; mA and/or kV adjustment per patient size (includes targeted exams where dose is matched to clinical indication); or iterative reconstruction. Contrast material: OMNI 350; Contrast volume: 66 ml; Contrast route: INTRAVENOUS (IV); COMPARISON: CT angio chest PE protcl [id number] 07/01/2017 12:01 PM RADIATION DOSE METRICS: Total DLP (mGy-cm): 322.75 FINDINGS: Pulmonary arteries: Normal. No pulmonary emboli. Aorta: Severe atherosclerosis of the included aorta. Veins: Reflux of contrast into hepatic veins. Lungs: Focal consolidation within medial right upper lobe. Pleural spaces: Unremarkable. No pneumothorax. No pleural effusion. Heart: Cardiomegaly. Coronary arteries: Significant coronary artery calcifications. Lymph nodes: Diffuse mediastinal lymphadenopathy, example includes 13 mm precarinal lymph node (6/173). Bones/joints: Unremarkable. No acute fracture. Soft tissues: Unremarkable. Other findings: Emphysema. No acute findings in partially included abdomen. CT/CT angio chest PE protcl [id number] IMPRESSION: 1. Negative for pulmonary embolus. 2. Cardiomegaly with severe coronary artery calcifications. 3. Reflux of contrast into hepatic veins, which can be seen with right heart dysfunction. 4. Focal consolidation within medial right upper lobe, concerning for pneumonia. 5. Mediastinal lymphadenopathy, nonspecific finding but may be reactive. 6. Emphysema.
--- NOTE | 2024-05-26 19:24 | PC.NURSE ---
Off unit for CTA chest.
[2024-05-26] MEDS: iohexol 350 mg/mL 500 mL Btl (per mL) IV (19:32)
--- NOTE | 2024-05-26 19:32 | PC.NURSE ---
Returned to room in er at this time.
[2024-05-26] MEDS: azithromycin 250 mg Tablet 500 MG PO (21:14)
== END 2024-05-26 21:20 | disposition home or self-care (01) ==
PROVIDERS: Emergency Provider Emergency Medicine; PCP Nurse Practitioner Family
DX: E86.0 Dehydration (principal); I95.9 Hypotension, unspecified; J18.9 Pneumonia, unspecified organism; Z79.82 Long term (current) use of aspirin; I25.10 Atherosclerotic heart disease of native coronary artery without angina pectoris; E78.5 Hyperlipidemia, unspecified; J44.9 Chronic obstructive pulmonary disease, unspecified; I12.9 Hypertensive chronic kidney disease with stage 1 through stage 4 chronic kidney disease, or unspecified chronic kidney disease; N18.31 Chronic kidney disease, stage 3a; C50.911 Malignant neoplasm of unspecified site of right female breast
CPT/HCPCS: 36415; 71045; 71275; 80053; 83605; 83880; 84484; 85025; 86140; 96360; 96361; 99285; J7030; Q0144

== ENCOUNTER → 2024-07-10 10:12 | Outpatient (BNVA) | payer MEDICARE, SELFPAY | PROVIDERS: PCP Nurse Practitioner Family; Visit Provider Nurse Practitioner Family | DX: I25.118 Atherosclerotic heart disease of native coronary artery with other forms of angina pectoris (principal); I13.0 Hypertensive heart and chronic kidney disease with heart failure and stage 1 through stage 4 chronic kidney disease, or unspecified chronic kidney disease; N18.30 Chronic kidney disease, stage 3 unspecified; I50.30 Unspecified diastolic (congestive) heart failure; I95.89 Other hypotension; E78.2 Mixed hyperlipidemia; Z79.82 Long term (current) use of aspirin; I25.2 Old myocardial infarction; R06.02 Shortness of breath; I50.9 Heart failure, unspecified | CPT/HCPCS: 36415; 80048; 83880; 99214 ==

== ENCOUNTER 2024-07-18 12:03 | Outpatient (CLI) | payer MEDICARE, SELFPAY ==
--- NOTE | 2024-07-18 12:13 | XR_ITS ---
WS: [id number] Exam: XR hip RT 2-3V wo/w pel* [id number] Date/Time of Exam: 07/18/2024 12:27 PM Reason For Exam: M16.11 - Unilateral primary osteoarthritis, right hip Comparison 01/18/2017. Moderate degenerative narrowing of the joint compartment. No fracture noted. Normal soft tissues. The visualized pelvis is intact. XR/XR hip RT 2-3V wo/w pel* [id number] IMPRESSION: 1. Moderate RIGHT hip DJD.
== END 2024-07-18 12:04 | disposition home or self-care (01) ==
PROVIDERS: PCP Nurse Practitioner Family; Visit Provider Family Medicine
DX: M16.11 Unilateral primary osteoarthritis, right hip (principal)
CPT/HCPCS: 73502

== ENCOUNTER → 2024-08-29 16:13 | Outpatient (BNVA) | payer MEDICARE, SELFPAY | PROVIDERS: PCP Nurse Practitioner Family; Visit Provider Family Medicine | DX: I10 Essential (primary) hypertension (principal); D50.9 Iron deficiency anemia, unspecified | CPT/HCPCS: 80053; 82728; 83540; 85025 ==

== ENCOUNTER 2024-08-30 14:32 | Outpatient (CLI) | payer MEDICARE, SELFPAY ==
--- NOTE | 2024-08-30 15:00 | USCV_ITS ---
Vivian Shaw Age: 69 Gender: F : 1955 Exam Date: 08/30/2024 14:52 Ordering Phys: Violeta Davis NP Technologist: Exam Location: [facility] [place] Indication: BP: 99 / 64 HR: 89 Rhythm: Sinus Technical Quality: Adequate MEASUREMENTS (Male / Female) Normal Values 2D ECHO LV Diastolic Diameter PLAX 4.7 cm 4.2 - 5.9 / 3.9 - 5.3 cm IVS Diastolic Thickness 1.0 cm 0.6 - 1.0 / 0.6 - 0.9 cm IVS Systolic Thickness 1.4 cm LVPW Diastolic Thickness 1.0 cm 0.6 - 1.0 / 0.6 - 0.9 cm LVPW Systolic Thickness 1.8 cm LVOT Diameter 2.0 cm LV Ejection Fraction 2D Teich 67.8 % LV Ejection Fraction MOD 4C 70.5 % LV Ejection Fraction MOD 2C 66.9 % LV Ejection Fraction 2C AL 68.8 % LA Diameter 4.0 cm RA Systolic Volume 4C AL 54.4 ml RA Systolic Volume 4C MOD 53.1 ml LA Sys Volume AL 48.5 cm cubed LA Sys Volume Index AL 28.4 cm cubed/m squared Aorta at Sinotubular Diameter 2.4 cm IVC Diameter 2.6 cm DOPPLER AV Peak Velocity 132.0 cm/s LVOT Peak Velocity 94.0 cm/s AV Area Cont Eq vti 2.3 cm squared AV Area Cont Eq pk 2.2 cm squared MV Peak Velocity 99.0 cm/s MV Area PHT 4.6 cm squared Mitral E to A Ratio 1.1 TV Peak Velocity 247.0 cm/s TR Peak Velocity 253.0 cm/s TR Peak Gradient 25.6 mmHg TV Peak E Velocity 104.0 cm/s PV Peak Velocity 104.0 cm/s FINDINGS Left Ventricle Ventricle is normal in size. LV systolic function is normal with EF of 55 to 60%. No regional wall motion abnormalities are seen. Right Ventricle Normal in size and function Right Atrium Normal in size. Left Atrium Normal in size. Mitral Valve Mild mitral annular calcification. Mild mitral regurgitation Aortic Valve Structurally normal aortic valve. No significant stenosis or regurgitation. Tricuspid Valve Mild tricuspid regurgitation. Pulmonary artery systolic pressure is normal. Pulmonic Valve Not well-visualized Pericardium Normal Aorta Normal in size IVC Appears to be normal CONCLUSIONS LV systolic function is normal with EF of 55-60%. Mild mitral regurgitation. Mild tricuspid regurgitation. Karlos Marlow MD (Electronically Signed) Final Date: 14 September 2024 11:59 S
== END 2024-08-30 14:33 | disposition home or self-care (01) ==
PROVIDERS: PCP Nurse Practitioner Family; Visit Provider Nurse Practitioner Family
DX: I50.9 Heart failure, unspecified (principal); I34.81 Nonrheumatic mitral (valve) annulus calcification; I34.0 Nonrheumatic mitral (valve) insufficiency; I07.1 Rheumatic tricuspid insufficiency
CPT/HCPCS: 93306

== ENCOUNTER → 2025-02-06 15:24 | Outpatient (BNVA) | payer MEDICARE, SELFPAY | PROVIDERS: PCP Nurse Practitioner Family; Visit Provider Internal Medicine Cardiovascular Disease | DX: I11.0 Hypertensive heart disease with heart failure (principal); I50.30 Unspecified diastolic (congestive) heart failure; E78.5 Hyperlipidemia, unspecified; I25.10 Atherosclerotic heart disease of native coronary artery without angina pectoris; R06.02 Shortness of breath; R00.2 Palpitations; R07.9 Chest pain, unspecified; I49.8 Other specified cardiac arrhythmias; I49.3 Ventricular premature depolarization; I45.10 Unspecified right bundle-branch block; I44.4 Left anterior fascicular block | CPT/HCPCS: 36415; 80048; 83880; 93005; 99214 ==

== ENCOUNTER → 2025-02-06 15:36 | Outpatient (BNVA) | payer MEDICARE, SELFPAY | PROVIDERS: PCP Nurse Practitioner Family; Visit Provider Internal Medicine Cardiovascular Disease | DX: R00.2 Palpitations (principal); I50.32 Chronic diastolic (congestive) heart failure; R00.1 Bradycardia, unspecified; I47.19 Other supraventricular tachycardia; I49.3 Ventricular premature depolarization; I49.1 Atrial premature depolarization | CPT/HCPCS: 93242 ==